=== PATIENT | male | born 1955 | race African-American/Black ===

== ENCOUNTER 2016-09-20 05:41 | Observation (INO) ==
[2016-09-20] MEDS ORDERED: ceFAZolin 1,000 MG VIAL IRRIG ONE (06:30)
--- NOTE | 2016-09-20 06:45 | EKG Report ---
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
[2016-09-20] MEDS ORDERED: ceFAZolin 1,000 MG VIAL ONE (06:56)
[2016-09-20 07:08] LABS: INR 3.6
[2016-09-20 07:13] LABS: PT Patient Result 41.9 SECS
[2016-09-20] MEDS ORDERED: PHYTONADIONE 10 MG/1 ML AMP SUBCUT ONE ×2 (07:18→10:40)
--- NOTE | 2016-09-20 07:32 | History and Physical Update ---
Sedation H&P Update - History and Physical H&P was reviewed, the patient examined and there: are no changes in the patients condition since last H&P was completed. - Dictation Physical: refer to scanned H&P - Physical Exam Mental Status: alert and oriented Heart: regular rate and rhythm Lung: clear to auscultation Abdomen: within normal limits Vitals: within normal limits History and Physical Changes: INR 3.6. Will correct INR with sq vit K, recheck H/o DVT/PE 10 yrs ago, no recurrence since was started on anticoagulation - Sedation Plan for Sedation: moderate Patient Consent: Procedure disscussed with patient and patinet has consented., Risks and benefits were discussed with patient,including infection,, bleeding, injury to surrounding structures, seizure, temporary nerve, Patient understands and accepts potential risks/benefits and agrees to ASA Class: III Airway Assessment: Class III: Soft palate, base of uvula visible
[2016-09-20] MEDS ORDERED: PHYTONADIONE 10 MG/1 ML AMP ONE ×2 (07:37→12:15)
[2016-09-20 10:29] LABS: INR 3.5
[2016-09-20 10:30] LABS: PT Patient Result 40.3 SECS
[2016-09-20] MEDS ORDERED: GLUCAGON 1 MG VIAL IM PRN (10:41)
[2016-09-20] MEDS ORDERED: DEXTROSE 50% 25 GM/50 ML VIAL IV PRN (10:41)
[2016-09-20 16:04] LABS: INR 3.1
[2016-09-20] MEDS: FUROSEMIDE 80 MG TABLET PO SCH ×2 (16:05→17:33)
[2016-09-20] MEDS: ASPIRIN EC 81 MG TABLET PO SCH ×2 (16:05→17:33)
[2016-09-20] MEDS: POTASSIUM CHLORIDE 20 MEQ TABLET PO SCH ×3 (16:05→21:08)
[2016-09-20 16:09] LABS: PT Patient Result 35.5 SECS
--- NOTE | 2016-09-20 16:37 | Cardiology History & Physical ---
Assessment and Plan (1) NICM (nonischemic cardiomyopathy) Status: Acute Assessment and plan: 61y AAm. NICM, CHF NYHA III, VT/VF, HTN, T2DM, DVT/PE on coumadin. Admitted for DDD ICD implant. -Supratherapeutic INR. Vit K was given today. Hold coumadin. Recheck in AM, if < 3, we will proceed with the ICD implant -cont insulin. Hold metformin -Keep on telemetry -NPO after MN Current Visit: Yes (2) CHF (congestive heart failure), NYHA class III Status: Acute Current Visit: Yes (3) T2DM (type 2 diabetes mellitus) Status: Acute Current Visit: Yes (4) HTN (hypertension) Status: Acute Current Visit: Yes (5) Anticoagulant effect Status: Acute Current Visit: Yes History of Present Illness Chief complaint: NICM, CHF History of present illness: Mr. Anderson is a 61 year old AA male, followed by dr. Aburto. H/o NICM, CHF NYHA III despite medical management, HTN, T2DM on insulin, DVT/PE, anticoagulated with coumadin. He had cardiac arrest due to VT/VF. He was referred for EP evaluation for ICD implant. We planned to proceed under therapeutic anticoagulation. The coumadin dose and the INR was monitored at [facility] before the procedure. The INR was 3.6 today. He got a total of 5 mg sq vitamin K so far, but the INR is still 3.1. Home Medications Medication Instructions Recorded Confirmed Type Allopurinol 300 mg PO DAILY 09/20/16 09/20/16 History Amiodarone HCl [Pacerone] 400 mg PO BID 09/20/16 09/20/16 History Aspirin EC Tab 81 mg PO DAILY 09/20/16 09/20/16 History Carvedilol [Coreg] 25 mg PO BID 09/20/16 09/20/16 History Digoxin 125 mcg PO DAILY 09/20/16 09/20/16 History Doxazosin Mesylate 8 mg PO DAILY 09/20/16 09/20/16 History Duloxetine HCl [Cymbalta] 60 capsule PO BEDTIME 09/20/16 09/20/16 History Furosemide Tab [Lasix Tab] 80 mg PO BID 09/20/16 09/20/16 History Gabapentin 300 capsule PO DAILY 09/20/16 09/20/16 History HYDROcodone/ACETAMIN 10-325 [[place] 1 tablet PO Q6HR PRN 09/20/16 09/20/16 History 10-325] Insulin Lispro [HumaLOG] 44 units SUBCUT AC SUPPER 09/20/16 09/20/16 History Insulin Lispro [HumaLOG] 46 units SUBCUT AC BREAKFAST 09/20/16 09/20/16 History Potassium Chloride 20 mcg PO TID 09/20/16 09/20/16 History Quinapril HCl 40 mg PO BID 09/20/16 09/20/16 History Warfarin [Coumadin] 5 mg PO DAILY 09/20/16 09/20/16 History amLODIPine [Norvasc] 10 mg PO DAILY 09/20/16 09/20/16 History cloNIDine HCl [Clonidine HCl] 0.3 mg PO BID 09/20/16 09/20/16 History metFORMIN [Glucophage] 500 mg PO BID 09/20/16 09/20/16 History Allergies Allergy/AdvReac Type Severity Reaction Status Date / Time No Known Allergies Allergy Unverified 09/20/16 06:01 12 point system: reviewed and no additional remarkable complaints except as stated Medical,Surgical,& Family Hx - Medical History Cardio: History of: Hypertension Neurology: No history of: Seizures Endocrine: History of: Diabetes Mellitus (IDDM), Dyslipidemia Musculoskeletal: History of: Back/Neck Problems - Surgical History Cardiac Surgeries: Sugical HX of: Cardiac Catheterization Abdominal Surgeries: Surgical HX of: EGD (20 years ago) Orthopedic Surgeries: Surgical HX of;: Spinal Surgery (disc mid and lower back) - Family History Family History: Reports;: Family Cancer (brother), Family Diabetes (mother), Family Heart Disease, Family Hypertension (mother) - Social History Smoking Status: Never smoker Frequency of Alcohol Use: None Type of Drug Use: None Cardiology Physical Exam - Constitutional Vitals: Vital Signs Temp Pulse Resp BP Pulse Ox 97.8 F 60 18 113/64 98 09/20/16 15:39 09/20/16 15:39 09/20/16 15:39 09/20/16 15:39 09/20/16 15:39 Intake and Output 09/20/16 09/20/16 09/20/16 07:59 15:59 23:59 Other: Weight 112.945 kg 110.677 kg Patient Weight 09/20/16 23:59 Weight 110.677 kg General appearance: over weight - Head Head exam: Present: normal inspection - Eye Eye exam: Absent: conjunctival injection Pupils: Absent: constricted - ENT ENT exam: Present: normal exam - Neck Neck exam: Present: normal inspection - Respiratory Respiratory exam: Present: clear to auscultation bilaterally - Cardiovascular Cardiovascular exam: Present: regular rate and rhythm - GI/Abdominal GI/Abdominal exam: Present: normal bowel sounds - Extremities Exam Extremities exam: Present: normal inspection, normal capillary refill. Absent: edema - Back Exam Back exam: Present: normal inspection - Neurological Exam Neurological exam: Present: alert, oriented X3 - Psychiatric Psychiatric exam: Present: normal affect, normal mood - Skin Skin exam: Present: normal color, warm. Absent: cyanosis Result/EKG - Labs Lab Results: I have reviewed the past 24 hour labs Labs: Laboratory Results - last 24 hr 09/20/16 09/20/16 09/20/16 06:55 07:00 08:45 INR 3.6 PT Patient/Control Mix 41.9 POC Glucose 70 L 88 09/20/16 09/20/16 09:49 15:11 INR 3.5 3.1 PT Patient/Control Mix 40.3 35.5 POC Glucose - EKG EKG results: interpreted by me
[2016-09-20] MEDS: amLODIPine 10 MG TABLET PO SCH (17:33)
[2016-09-20] MEDS: CARVEDILOL 25 MG TABLET PO SCH (17:33)
[2016-09-20] MEDS: INSULIN LISPRO 100 UNIT/ML SUBCUT SCH (17:35)
[2016-09-20] MEDS: QUINAPRIL 20 MG TABLET PO SCH (21:08)
[2016-09-20] MEDS: DULoxetine 30 MG CAPSULE PO SCH (21:08)
[2016-09-21 05:42] LABS: Basophils # 0.1 10*3/uL (0.0-0.2); Basophils % 0.7 % (0.0-0.8); Eosinophils # 0.5 10*3/uL (0.0-0.87); Eosinophils % 5.9 % (0.00-10.9); Hematocrit 37.6 VOL% (42.0-52.0); Hemoglobin 12.2 GM/DL (14.0-18.0); Immature Granulocytes % 0.3 %; Immature Granulocytes Absolute 0.02 #; Lymphocytes # 2.6 10*3/uL (1.4-4.0); Lymphocytes % 34.2 % (21.2-54.2); Mean Corpuscular HGB Conc 32.4 GM/DL (32-36); Mean Corpuscular Hemoglobin 29 PG (27-34); Mean Corpuscular Volume 88.9 FL (87-102); Monocytes # 0.5 10*3/uL (0.11-0.8); Monocytes % 6.9 % (1.7-12.7); Platelet Count 215 T/CUMM (130-400); Red Blood Count 4.23 MC/CUMM (3.8-5.5); Red Cell Distribution Width 15.6 % (9.3-17.3); White Blood Count 7.7 T/CUMM (4-12)
[2016-09-21 05:54] LABS: INR 2.1
[2016-09-21 06:09] LABS: PT Patient Result 23.5 SECS
[2016-09-21 06:13] LABS: Calcium 8.7 MG/DL (8.5-10.1); Osmolality,Calculated 297.6 MOS/KG (273-304); Potassium 3.6 MMOL/L (3.5-5.1)
[2016-09-21] MEDS ORDERED: ONDANSETRON 4 MG/2 ML VIAL ONE (07:15)
[2016-09-21] MEDS ORDERED: PROPOFOL 500 MG/50 ML BOTTLE IV ONE (07:15)
[2016-09-21] MEDS ORDERED: LIDOCAINE 100 MG/5 ML SYRINGE ONE (07:15)
[2016-09-21] MEDS ORDERED: ceFAZolin 1,000 MG VIAL ONE (07:24)
[2016-09-21] MEDS ORDERED: HEPARIN/NACL 0.9% 2 UNITS/ML 500 ML IV ONE (07:25)
[2016-09-21] MEDS ORDERED: LIDOCAINE 1% 20 ML VIAL ONE (07:25)
--- NOTE | 2016-09-21 07:26 | History and Physical Update ---
Sedation H&P Update - History and Physical H&P was reviewed, the patient examined and there: are no changes in the patients condition since last H&P was completed. - Dictation Physical: refer to H&P completed by admitting physician - Physical Exam Mental Status: alert and oriented Heart: regular rate and rhythm Lung: clear to auscultation Abdomen: within normal limits Vitals: within normal limits - Sedation Plan for Sedation: MAC Patient Consent: Procedure disscussed with patient and patinet has consented., Risks and benefits were discussed with patient,including infection,, bleeding, injury to surrounding structures, seizure, temporary nerve, Patient understands and accepts potential risks/benefits and agrees to ASA Class: III Airway Assessment: Class II: Soft palate, uvula, fauces visible
[2016-09-21] MEDS ORDERED: TISSUE ADHESIVE 1 EACH APPLICATOR TOP ONE (08:05)
--- NOTE | 2016-09-21 09:27 | Cardiac Defibrillator ---
- Preoperative diagnosis Date of Procedure:: 09/21/16 Preop Diagnosis: cardiac arrest due to ventricular fibrillation, not due to transient reversible cause Post-op diagnosis: same Procedure: PROCEDURAL SUMMARY DDD ICD implant from left axillary access. Defibrillator testing. Successful procedure, no complications. PLAN Bed rest for 4 hours. CXR, ECG stat. Ancef 1g iv. q8h 2x Routine post ICD implant nursing care. DIAGNOSES NICM VF arrest T2DM Sedation A timeout was performed. Conscious sedation was initiated and maintained with iv. Versed and Fentanyl. Sedation was provided by the anesthesia team for the defibrillator testing. The patient was continuously monitored by electrocardiography, pulse oximetry and NIBP. Antibiotic prophylaxis Iv. Ancef was used prior to the procedure. PROCEDURE The left pectoral area was meticulously prepared with ChloroPrep surgical scrub. Sterile draping was applied and Ioban was used to cover the operation site. The image intensifier was draped with a sterile bag and positioned over the patient's chest. After infiltration with 1% lidocaine, an incision was made in the left infraclavicular area, parallel to the deltopectoral groove. The incision was carried down to the level of the pectoral fascia, with careful cauterization of all bleeders. A subcutaneous pocket was then created superficial to the pectoral fascia with sharp and blunt dissection and hemostasis was achieved. A micropuncture kit was used to access the left axillary vein under fluoroscopic guidance. A peel-away introducer was inserted over the guidewire. The dilator of the introducer was removed, the guidewire was secured to the drape, and the right ventricular lead was passed through the introducer and advanced to the right ventricular outflow tract under fluoroscopic guidance. The introducer sheath was then removed. The ventricular lead was positioned in the right ventricular cavity using a curved stiffening stylet. The curved stylet was replaced with a straight stylet which was advanced to the electrode tip and used to deploy the active fixation mechanism. The lead was tested repeatedly for stability. A second axillary access was obtained for the atrial lead due to narrow costoclavicular space. A second peel-away introducer was inserted over the guidewire. The dilator of the introducer was removed, the guidewire was secured to the drape, and the atrial lead was passed through the introducer and advanced to the right atrium. Under fluoroscopic guidance, the atrial electrode was then positioned in the right atrial cavity using a curved stylet and tested repeatedly for stability. Multiple atrial positions were measured due to high pacing thresholds. The leads were tested for stability and phrenic nerve stimulation was excluded with pacing at 10 Volts. The leads were anchored in the subcutaneous tissue with nonabsorbable suture on the anchoring sleeve near the point of entry to the vein. The ICD generator was then attached to the leads and sealed in the prescribed manner. The wound was flushed with Ancef and the device was placed into the pocket. The guidewire was removed. VF was induced with T wave shock. The ICD detected the arrhythmia and performed successful defibrilation with 25J energy. The wound was then closed using a double layer of 2-0 absorbable Vicryl sutures followed by a subcuticular running suture with 4-0 Monocryl and a layer of SteriStrips. A sterile dressing was applied. The device was programmed as detailed below. Implants Device: Medtronic Evera DDD ICD, SN: [id number], location: left infraclavicular Right ventricular lead: Medtronic [id number], SN: [id number], location: RV apex Right atrial lead: Medtronic [id number], SN: [id number], location: RA appendage The implanted system is MRI conditional. Measurements RA bipolar: threshold 0.75V @ 0.4 ms, P 2.1 mV, impedance 399 Ohm RV bipolar: threshold 0.75V @ 0.4 ms, R 10.0 mV, impedance 475 Ohm Shock impedance 54 Ohms. Settings MVPR 60/130 Mode switch on VF @ 300 ms VT @ 360 ms Anesthesia: MAC Surgeon / Physician: Misael Trejo Titrator: other (Raúl) Estimated blood loss: minimal Specimens: none sent Condition: stable Disposition: floor - Medications / Follow-up
[2016-09-21] MEDS ORDERED: MIDAZOLAM 2 MG/2 ML VIAL ONE (09:31)
[2016-09-21] MEDS ORDERED: fentaNYL 100 MCG/2 ML VIAL ONE (09:31)
[2016-09-21] MEDS ORDERED: SODIUM CHLORIDE 0.9% 100 ML IV ONE (09:31)
[2016-09-21] MEDS ORDERED: LACTATED RINGERS 1,000 ML IV ONE (09:31)
--- NOTE | 2016-09-21 09:36 | Anesthesia ---
Anesthesia Post OP - Post Ansesthetic Evaluation Patient seen in post op: Yes Resp: within normal limits CV: within normal limits Mental: within normal limits Temp: within normal limits Leps-[id number]-Iwvjecjhw: within normal limits Nausea and Vomiting: within normal limits Pain: within normal limits
--- NOTE | 2016-09-21 09:41 | XRay Report ---
History: Pacemaker lead placement. Postop pacemaker Date: 09/21/2016 at 9:12 AM Study: Chest x-ray AP portable Comparison exam: September 12, 2016 A left subclavian dual-lead transvenous pacemaker/defibrillator device is in generally satisfactory position. There is no pneumothorax. There is mild cardiomegaly. There is no mediastinal mass. The pulmonary vasculature is borderline prominent. The lungs and pleural spaces are generally clear. Shallow breath. There is [id number] thoracic spondylosis. Impression: No evidence of a pneumothorax following pacemaker placement. The pacemaker leads are in generally satisfactory position. Mild cardiomegaly and borderline pulmonary venous hypertension. PROCEDURE INTERPRETED AT [facility] DEPARTMENT OF RADIOLOGY Final Report Signed by: Dr. Ashanti Lin
--- NOTE | 2016-09-21 09:47 | EKG Report ---
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
[2016-09-21] MEDS: GABAPENTIN 300 MG CAPSULE PO SCH (10:36)
[2016-09-21] MEDS: INSULIN LISPRO 100 UNIT/ML SUBCUT SCH ×2 (10:36→17:26)
[2016-09-21] MEDS: amLODIPine 10 MG TABLET PO SCH (10:37)
[2016-09-21] MEDS: FUROSEMIDE 80 MG TABLET PO SCH ×2 (10:37→17:26)
[2016-09-21] MEDS: CARVEDILOL 25 MG TABLET PO SCH ×2 (10:37→17:26)
[2016-09-21] MEDS: DOXAZOSIN 4 MG TABLET PO SCH (10:37)
[2016-09-21] MEDS: ASPIRIN EC 81 MG TABLET PO SCH (10:37)
[2016-09-21] MEDS: ALLOPURINOL 300 MG TABLET PO SCH (10:37)
[2016-09-21] MEDS: POTASSIUM CHLORIDE 20 MEQ TABLET PO SCH ×3 (10:37→21:37)
[2016-09-21] MEDS: QUINAPRIL 20 MG TABLET PO SCH ×2 (10:37→21:36)
[2016-09-21] MEDS ORDERED: DIGOXIN 0.125 MG TABLET PO SCH (13:00)
[2016-09-21] MEDS ORDERED: WARFARIN 2 MG TABLET PO SCH (18:00)
[2016-09-21] MEDS ORDERED: WARFARIN 4 MG TABLET ONE (18:50)
[2016-09-21] MEDS: DULoxetine 30 MG CAPSULE PO SCH (21:36)
[2016-09-22 05:10] LABS: Basophils % 0.3 % (0.0-0.8); Eosinophils # 0.6 10*3/uL (0.0-0.87); Eosinophils % 6.3 % (0.00-10.9); Hematocrit 37.8 VOL% (42.0-52.0); Immature Granulocytes % 0.3 %; Immature Granulocytes Absolute 0.03 #; Lymphocytes # 3.1 10*3/uL (1.4-4.0); Lymphocytes % 35.6 % (21.2-54.2); Mean Corpuscular HGB Conc 31.7 GM/DL (32-36); Mean Corpuscular Hemoglobin 29 PG (27-34); Mean Corpuscular Volume 90.2 FL (87-102); Mean Platelet Volume 13.5 FL (9.6-12.0); Monocytes # 0.6 10*3/uL (0.11-0.8); Neutrophils # 4.4 10*3/uL (1.4-7.4); Neutrophils % 50.5 % (38.7-73.9); Platelet Count 196 T/CUMM (130-400); Red Blood Count 4.19 MC/CUMM (3.8-5.5); Red Cell Distribution Width 15.8 % (9.3-17.3); White Blood Count 8.8 T/CUMM (4-12)
[2016-09-22 05:19] LABS: INR 1.5; PT Patient Result 16.3 SECS
[2016-09-22 05:43] LABS: Calcium 8.6 MG/DL (8.5-10.1); Osmolality,Calculated 293.7 MOS/KG (273-304); Potassium 4.4 MMOL/L (3.5-5.1)
[2016-09-22 07:50] VITALS: BP 138/69
--- NOTE | 2016-09-22 08:24 | Discharge Summary ---
Hospital Course - Hospital Course Hospital Course: 61yF, followed by dr. Aburto. NICM, CHF, bradycardia, s/p VF arrest. He was admitted for DDD ICD implantatation for secondary prevention. Successful defibrillator testing was performed. The procedure was performed in MAC, there were not complications. CX and device interrogation showed normal lead parameters and position. Labs remained at baseline. There was no hematoma. -The amiodarone was discontinued. Continue Coreg, quinapril. -Continue digoxin. Level was 1.1 with renally adjusted dose. -FU with dr. Trejo in 1 week. -Post ICD implant activity limitations and implant site catre were discussed. -Continue coumadin. Diagnosis - Discharge Diagnosis (1) NICM (nonischemic cardiomyopathy) Status: Acute (2) CHF (congestive heart failure), NYHA class III Status: Acute (3) T2DM (type 2 diabetes mellitus) Status: Acute (4) HTN (hypertension) Status: Acute (5) Anticoagulant effect Status: Acute Discharge Plan - Discharge Data Disposition: Disch To Home/Self Care Condition at Discharge: Stable Discharge Diet: advance to your usual diet Activity: resume usual activities as tolerated Hygiene: other (keep implant site dry and wear the sling all time for 1 week) Weight Bearing at Discharge: full weight bearing Driving: not until seen by doctor Contact your physician if you experience:: fever over 101, Difficulty voiding, Redness or swelling, Nausea/Vomiting, Shortness of breath, Bleeding, pain uncontrolled by pain medications - Discharge Medications Continue cloNIDine HCl [Clonidine HCl] 0.3 mg PO BID Quinapril HCl 40 mg PO BID Gabapentin 300 capsule PO DAILY Insulin Lispro [HumaLOG] 46 units SUBCUT AC BREAKFAST Aspirin EC Tab 81 mg PO DAILY Allopurinol 300 mg PO DAILY Carvedilol [Coreg] 25 mg PO BID Duloxetine HCl [Cymbalta] 60 capsule PO BEDTIME Potassium Chloride 20 mcg PO TID amLODIPine [Norvasc] 10 mg PO DAILY HYDROcodone/ACETAMIN 10-325 [[place] 10-325] 1 tablet PO Q6HR PRN PRN Reason: back pain metFORMIN [Glucophage] 500 mg PO BID Furosemide Tab [Lasix Tab] 80 mg PO BID Doxazosin Mesylate 8 mg PO DAILY Digoxin 125 mcg PO DAILY Insulin Lispro [HumaLOG] 44 units SUBCUT AC SUPPER Warfarin [Coumadin] 5 mg PO DAILY Discontinued Amiodarone HCl [Pacerone] 400 mg PO BID - Follow Up or Referral Follow Up: Misael Trejo MD [Physician] - 1 Week - Forms/Instructions Exam - Constitutional Vitals: Period Temp Pulse Resp BP Sys/Chen Pulse Ox Last 24 Hr 98 F-98.8 F 60-67 16-20 113-143/55-71 92-96 General appearance: over weight - Head Head exam: Present: normal inspection - Eye Eye exam: Absent: conjunctival injection Pupils: Absent: dilated - ENT ENT exam: Present: normal external ear exam - Neck Neck exam: Present: normal inspection - Respiratory Respiratory exam: Present: clear to auscultation bilaterally - Cardiovascular Cardiovascular exam: Present: regular rate and rhythm, systolic murmur - GI/Abdominal GI/Abdominal exam: Present: normal bowel sounds - Extremities Exam Extremities exam: Present: normal inspection, normal capillary refill. Absent: edema - Back Exam Back exam: Present: normal inspection - Neurological Exam Neurological exam: Present: alert, oriented X3 - Psychiatric Psychiatric exam: Present: normal affect, normal mood - Skin Skin exam: Present: normal color, warm. Absent: cyanosis Discharge Results Procedures and tests throughout hospitalization: Pending Orders 09/21/16 07:28 CL pacemaker Routine 09/22/16 04:00 XR chest 2V IN AM Labs on day of discharge: Labs from last 24 hours 09/22/16 09/22/16 09/22/16 07:14 04:16 04:16 WBC RBC Hgb Hct MCV MCH MCHC RDW Plt Count MPV Neut % (Auto) Lymph % (Auto) [place] % (Auto) Eos % (Auto) Baso % (Auto) Neut # (Auto) Lymph # (Auto) [place] # (Auto) Eos # (Auto) Baso # (Auto) Immature Gran % Nucleated RBC % Immature Gran # Nucleated RBCs # INR 1.5 PT Patient/Control Mix 16.3 D Sodium 145 Potassium 4.4 Chloride 107 Carbon Dioxide 28 Anion Gap 14.4 BUN 18 Creatinine 1.40 H GFR Calculation 82 BUN/Creatinine Ratio 12.00 Glucose 164 H POC Glucose 193 H Calculated Osmolality 293.7 Calcium 8.6 Magnesium 2.0 Digoxin 09/22/16 09/21/16 09/21/16 04:16 20:06 16:27 WBC 8.8 RBC 4.19 Hgb 12.0 L Hct 37.8 L MCV 90.2 MCH 29 MCHC 31.7 L RDW 15.8 Plt Count 196 MPV 13.5 H Neut % (Auto) 50.5 Lymph % (Auto) 35.6 [place] % (Auto) 7.0 Eos % (Auto) 6.3 Baso % (Auto) 0.3 Neut # (Auto) 4.4 Lymph # (Auto) 3.1 Trinity # (Auto) 0.6 Eos # (Auto) 0.6 Baso # (Auto) 0.0 Immature Gran % 0.3 Nucleated RBC % 0.0 Immature Gran # 0.03 Nucleated RBCs # 0.00 INR PT Patient/Control Mix Sodium Potassium Chloride Carbon Dioxide Anion Gap BUN Creatinine GFR Calculation BUN/Creatinine Ratio Glucose POC Glucose 253 H 159 H Calculated Osmolality Calcium Magnesium Digoxin 09/21/16 09/21/16 09/21/16 11:36 10:33 05:09 WBC RBC Hgb Hct MCV MCH MCHC RDW Plt Count MPV Neut % (Auto) Lymph % (Auto) [place] % (Auto) Eos % (Auto) Baso % (Auto) Neut # (Auto) Lymph # (Auto) Trinity # (Auto) Eos # (Auto) Baso # (Auto) Immature Gran % Nucleated RBC % Immature Gran # Nucleated RBCs # INR PT Patient/Control Mix Sodium Potassium Chloride Carbon Dioxide Anion Gap BUN Creatinine GFR Calculation BUN/Creatinine Ratio Glucose POC Glucose 191 H 226 H Calculated Osmolality Calcium Magnesium Digoxin 1.10 - Imaging and Cardiology Cardiology Procedure: image reviewed by me, report reviewed by me DS: Provider Date of admission: 09/20/16 10:39 Attending physician on admission: Misael Trejo MD Consults: 09/21/16 09:09 Consult to Pharmacy [CONS] Routine Reason for Pharmacy Consult: Adjust Meds Renal Funct Discharging clinician: Misael Trejo MD Expected date of discharge: 09/22/16
[2016-09-22] MEDS: POTASSIUM CHLORIDE 20 MEQ TABLET PO SCH (08:55)
[2016-09-22] MEDS: GABAPENTIN 300 MG CAPSULE PO SCH (08:55)
[2016-09-22] MEDS: QUINAPRIL 20 MG TABLET PO SCH (08:55)
[2016-09-22] MEDS: DOXAZOSIN 4 MG TABLET PO SCH (08:56)
[2016-09-22] MEDS: amLODIPine 10 MG TABLET PO SCH (08:56)
[2016-09-22] MEDS: FUROSEMIDE 80 MG TABLET PO SCH (08:56)
[2016-09-22] MEDS: INSULIN LISPRO 100 UNIT/ML SUBCUT SCH (08:56)
[2016-09-22] MEDS: CARVEDILOL 25 MG TABLET PO SCH (08:56)
[2016-09-22] MEDS: ASPIRIN EC 81 MG TABLET PO SCH (08:56)
[2016-09-22] MEDS: ALLOPURINOL 300 MG TABLET PO SCH (08:56)
--- NOTE | 2016-09-22 09:15 | XRay Report ---
XR chest 2V Date: 09/22/2016 4:00 AM History: Lead placement Comparison: 09/21/2016 Technique: PA and lateral chest Findings: The heart is slightly smaller in size with left subclavian atrioventricular permanent pacemaker. No pneumothorax. Reduced interstitial edema with smaller pleural effusions. IVC filter with degenerative changes. Impression: Improving mild CHF with stable left subclavian atrioventricular AICD. No pneumothorax. PROCEDURE INTERPRETED AT [facility] DEPARTMENT OF RADIOLOGY Final Report Signed by: Dr. Mariel Mays
== END 2016-09-22 10:33 | disposition home or self-care (01) ==
LOC: N.CL 05:41 → N.TELEN 05:41 → N.CL 05:59 → N.TELEN 15:25
PROVIDERS: ADMIT Internal Medicine Clinical Cardiac Electrophysiology; ATTEND Internal Medicine Clinical Cardiac Electrophysiology
PROC: CLDCICD (2016-09-21 07:45)

== ENCOUNTER 2019-04-29 23:49 | Inpatient (IN) ==
[2019-04-30] MEDS ORDERED: FUROSEMIDE 40 MG/4 ML VIAL IV STA (00:18)
[2019-04-30 00:55] LABS: Alanine Aminotransferase 45 U/L (16-61); Albumin 3.3 G/DL (3.4-5.0); Alkaline Phosphatase 210 U/L (45-117); Aspartate Amino Transferase 20 U/L (0-37); Blood Urea Nitrogen 52 MG/DL (7-18); Calcium 8.8 MG/DL (8.5-10.1); Estimated Glom Filtration Rate 33 ML/MIN; Glucose 146 MG/DL (74-106); Osmolality,Calculated 295.4 MOS/KG (273-304); Total Protein 7.6 G/DL (6.4-8.3)
[2019-04-30 00:56] LABS: Basophils # 0.1 10*3/uL (0.0-0.2); Basophils % 0.8 % (0.0-0.8); Eosinophils # 0.2 10*3/uL (0.0-0.87); Eosinophils % 3.2 % (0.00-10.9); Hematocrit 33.2 VOL% (42.0-52.0); Hemoglobin 10.1 GM/DL (14.0-18.0); Immature Granulocytes % 0.6 %; Immature Granulocytes Absolute 0.04 #; Lymphocytes # 1.2 10*3/uL (1.4-4.0); Lymphocytes % 16.7 % (21.2-54.2); Mean Corpuscular HGB Conc 30.4 GM/DL (32-36); Mean Corpuscular Volume 88.3 FL (87-102); Mean Platelet Volume 12.1 FL (9.6-12.0); Monocytes % 8.1 % (1.7-12.7); Neutrophils % 70.6 % (38.7-73.9); Platelet Count 265 T/CUMM (130-400); Red Blood Count 3.76 MC/CUMM (3.8-5.5); Red Cell Distribution Width 16.2 % (9.3-17.3); Troponin I 0.231 NG/ML (0.00-0.045); White Blood Count 7.2 T/CUMM (4-12)
[2019-04-30 00:58] LABS: INR 2.7
[2019-04-30 01:00] LABS: Partial Thromboplastin Time 41.6 SECS (20.8-36.0)
[2019-04-30] MEDS ORDERED: GLUCAGON 1 MG VIAL IM PRN (04:51)
[2019-04-30] MEDS ORDERED: DEXTROSE 50% 25 GM/50 ML VIAL IV PRN (04:51)
[2019-04-30] MEDS ORDERED: ACETAMINOPHEN 325 MG TABLET PO PRN (04:51)
[2019-04-30] MEDS ORDERED: ONDANSETRON 4 MG/2 ML VIAL IV PRN (04:51)
[2019-04-30] MEDS ORDERED: DOCUSATE SODIUM 100 MG CAPSULE PO PRN (04:51)
[2019-04-30 06:23] LABS: Thyroid Stimulating Hormone 8.72 uIU/ml (0.358-3.74)
[2019-04-30] MEDS: INSULIN LISPRO 100 UNIT/ML SUBCUT SCH ×4 (07:27→20:44)
[2019-04-30] MEDS ORDERED: INSULIN LISPRO PROTAMINE/LISPRO 75/25 100 UNIT/ML SUBCUT SCH ×2 (08:00→17:00)
[2019-04-30 08:25] LABS: Free T4 (Free Thyroxine) 1.41 NG/DL (0.76-1.46)
[2019-04-30] MEDS ORDERED: ISOSORBIDE MONONITRATE 30 MG TABLET PO SCH (09:00)
[2019-04-30] MEDS: amLODIPine 10 MG TABLET PO SCH (09:01)
[2019-04-30] MEDS: DOXAZOSIN 4 MG TABLET PO SCH (09:01)
[2019-04-30] MEDS: POTASSIUM CHLORIDE 20 MEQ TABLET PO SCH ×3 (09:01→20:44)
[2019-04-30] MEDS: ALLOPURINOL 300 MG TABLET PO SCH (09:01)
[2019-04-30] MEDS: ASPIRIN EC 81 MG TABLET PO SCH (09:01)
[2019-04-30] MEDS: AMIODARONE 200 MG TABLET PO SCH (09:01)
[2019-04-30] MEDS: LEVOTHYROXINE 50 MCG TABLET PO SCH (09:02)
[2019-04-30] MEDS: hydrALAZINE 10 MG TABLET PO SCH ×3 (09:02→20:44)
[2019-04-30] MEDS: carvediloL 25 MG TABLET PO SCH ×2 (09:02→17:17)
[2019-04-30] MEDS: DIGOXIN 0.125 MG TABLET PO SCH (09:02)
[2019-04-30] MEDS: traMADol 50 MG TABLET PO PRN (09:03)
[2019-04-30] MEDS: FUROSEMIDE 100 MG/10 ML VIAL IV SCH ×2 (09:03→15:22)
[2019-04-30] MEDS: BRINZOLAMIDE 1% OPH SUSP 10 ML BOTTLE BOTH EYES SCH ×3 (09:04→20:44)
[2019-04-30] MEDS: WARFARIN 5 MG TABLET PO SCH (17:17)
[2019-04-30] MEDS: GABAPENTIN 300 MG CAPSULE PO SCH (20:44)
[2019-04-30] MEDS: DULoxetine 30 MG CAPSULE PO SCH (20:44)
[2019-05-01 05:07] LABS: Basophils % 0.6 % (0.0-0.8); Eosinophils # 0.3 10*3/uL (0.0-0.87); Eosinophils % 4.1 % (0.00-10.9); Hematocrit 31.7 VOL% (42.0-52.0); Hemoglobin 9.9 GM/DL (14.0-18.0); Immature Granulocytes % 0.3 %; Immature Granulocytes Absolute 0.02 #; Lymphocytes # 1.3 10*3/uL (1.4-4.0); Lymphocytes % 19.1 % (21.2-54.2); Mean Corpuscular HGB Conc 31.2 GM/DL (32-36); Mean Corpuscular Volume 85.9 FL (87-102); Mean Platelet Volume 12.1 FL (9.6-12.0); Monocytes % 8.3 % (1.7-12.7); Neutrophils % 67.6 % (38.7-73.9); Platelet Count 258 T/CUMM (130-400); Red Blood Count 3.69 MC/CUMM (3.8-5.5); Red Cell Distribution Width 16.2 % (9.3-17.3)
[2019-05-01] MEDS: LEVOTHYROXINE 50 MCG TABLET PO SCH (06:07)
[2019-05-01 06:25] LABS: Calcium 9.1 MG/DL (8.5-10.1); Osmolality,Calculated 297.3 MOS/KG (273-304)
[2019-05-01] MEDS: INSULIN LISPRO 100 UNIT/ML SUBCUT SCH ×4 (07:29→21:18)
[2019-05-01] MEDS: DOXAZOSIN 4 MG TABLET PO SCH (09:11)
[2019-05-01] MEDS: amLODIPine 10 MG TABLET PO SCH (09:12)
[2019-05-01] MEDS: GABAPENTIN 300 MG CAPSULE PO SCH ×2 (09:12→21:18)
[2019-05-01] MEDS: ALLOPURINOL 300 MG TABLET PO SCH (09:12)
[2019-05-01] MEDS: ISOSORBIDE MONONITRATE 30 MG TABLET PO SCH (09:12)
[2019-05-01] MEDS: DIGOXIN 0.125 MG TABLET PO SCH (09:12)
[2019-05-01] MEDS: carvediloL 25 MG TABLET PO SCH ×2 (09:12→17:37)
[2019-05-01] MEDS: ASPIRIN EC 81 MG TABLET PO SCH (09:12)
[2019-05-01] MEDS: POTASSIUM CHLORIDE 20 MEQ TABLET PO SCH ×3 (09:13→21:18)
[2019-05-01] MEDS: AMIODARONE 200 MG TABLET PO SCH (09:13)
[2019-05-01] MEDS: FUROSEMIDE 100 MG/10 ML VIAL IV SCH ×2 (09:13→16:08)
[2019-05-01] MEDS: BRINZOLAMIDE 1% OPH SUSP 10 ML BOTTLE BOTH EYES SCH ×3 (09:15→21:18)
[2019-05-01] MEDS: WARFARIN 5 MG TABLET PO SCH (17:36)
[2019-05-01 19:34] LABS: INR 2.3
[2019-05-01 19:35] LABS: PT Patient Result 24.8 SECS (9.6-12.2)
[2019-05-01] MEDS: DULoxetine 30 MG CAPSULE PO SCH (21:18)
[2019-05-01] MEDS: traMADol 50 MG TABLET PO PRN (22:07)
[2019-05-02] MEDS: LEVOTHYROXINE 50 MCG TABLET PO SCH (05:51)
[2019-05-02 05:53] LABS: Basophils # 0.1 10*3/uL (0.0-0.2); Basophils % 0.6 % (0.0-0.8); Eosinophils # 0.3 10*3/uL (0.0-0.87); Eosinophils % 3.5 % (0.00-10.9); Hematocrit 31.7 VOL% (42.0-52.0); Hemoglobin 9.7 GM/DL (14.0-18.0); Immature Granulocytes % 0.2 %; Immature Granulocytes Absolute 0.02 #; Lymphocytes # 1.5 10*3/uL (1.4-4.0); Lymphocytes % 18.5 % (21.2-54.2); Mean Corpuscular HGB Conc 30.6 GM/DL (32-36); Mean Corpuscular Volume 86.1 FL (87-102); Mean Platelet Volume 11.9 FL (9.6-12.0); Monocytes % 8.4 % (1.7-12.7); Neutrophils % 68.8 % (38.7-73.9); Platelet Count 257 T/CUMM (130-400); Red Blood Count 3.68 MC/CUMM (3.8-5.5); Red Cell Distribution Width 16.3 % (9.3-17.3)
[2019-05-02 06:06] LABS: Calcium 8.7 MG/DL (8.5-10.1); Osmolality,Calculated 297.4 MOS/KG (273-304)
[2019-05-02 06:08] LABS: INR 2.4
[2019-05-02 06:27] LABS: PT Patient Result 25.4 SECS (9.6-12.2)
[2019-05-02] MEDS: INSULIN LISPRO 100 UNIT/ML SUBCUT SCH ×2 (08:51→12:22)
[2019-05-02] MEDS: ASPIRIN EC 81 MG TABLET PO SCH (08:51)
[2019-05-02] MEDS: GABAPENTIN 300 MG CAPSULE PO SCH (08:52)
[2019-05-02] MEDS: ISOSORBIDE MONONITRATE 30 MG TABLET PO SCH (08:52)
[2019-05-02] MEDS: AMIODARONE 200 MG TABLET PO SCH (08:52)
[2019-05-02] MEDS: carvediloL 25 MG TABLET PO SCH (08:52)
[2019-05-02] MEDS: ALLOPURINOL 300 MG TABLET PO SCH (08:52)
[2019-05-02] MEDS: POTASSIUM CHLORIDE 20 MEQ TABLET PO SCH (08:52)
[2019-05-02] MEDS: DIGOXIN 0.125 MG TABLET PO SCH (08:52)
[2019-05-02] MEDS: DOXAZOSIN 4 MG TABLET PO SCH (08:52)
[2019-05-02] MEDS: amLODIPine 10 MG TABLET PO SCH (08:53)
[2019-05-02] MEDS: FUROSEMIDE 100 MG/10 ML VIAL IV SCH (08:53)
[2019-05-02] MEDS: BRINZOLAMIDE 1% OPH SUSP 10 ML BOTTLE BOTH EYES SCH (08:54)
[2019-05-02 12:02] VITALS: BP 120/58
[2019-05-02] MEDS ORDERED: INFLUENZA VIRUS VACCINE 0.5 ML SYRINGE IM ONE (12:30)
[2019-05-02] MEDS ORDERED: FUROSEMIDE 80 MG TABLET PO SCH (16:00)
== END 2019-05-02 13:29 | disposition home health service (06) | DRG 291 ==
LOC: N.ED 23:49 → SUATTDRO 04-30 04:10 → N.EDINP 04-30 04:10 → N.2E 04-30 04:18
PROVIDERS: ADMIT Family Medicine; ATTEND Internal Medicine

== ENCOUNTER 2019-07-12 07:00 | Observation (INO) ==
[2019-07-12 09:20] LABS: Basophils # 0.1 10*3/uL (0.0-0.2); Basophils % 0.6 % (0.0-0.8); Eosinophils # 0.1 10*3/uL (0.0-0.87); Hematocrit 33.9 VOL% (42.0-52.0); Hemoglobin 10.4 GM/DL (14.0-18.0); Immature Granulocytes % 0.5 %; Immature Granulocytes Absolute 0.05 #; Lymphocytes # 1.4 10*3/uL (1.4-4.0); Lymphocytes % 13.2 % (21.2-54.2); Mean Corpuscular HGB Conc 30.7 GM/DL (32-36); Mean Platelet Volume 11.5 FL (9.6-12.0); Monocytes % 9.7 % (1.7-12.7); Platelet Count 242 T/CUMM (130-400); Red Blood Count 4.24 MC/CUMM (3.8-5.5); White Blood Count 10.6 T/CUMM (4-12)
[2019-07-12 09:35] LABS: Calcium 8.7 MG/DL (8.5-10.1)
[2019-07-12] MEDS ORDERED: ASPIRIN 325 MG TABLET PO STA (10:26)
[2019-07-12] MEDS ORDERED: POTASSIUM CHLORIDE 20 MEQ TABLET PO STA (10:32)
[2019-07-12] MEDS ORDERED: MAGNESIUM SULF RIDER 2 GM in PREMIX 1 EACH IV PRN (11:18)
[2019-07-12] MEDS ORDERED: BISACODYL 5 MG TABLET PO PRN (11:18)
[2019-07-12] MEDS ORDERED: ACETAMINOPHEN 325 MG TABLET PO PRN (11:18)
[2019-07-12] MEDS ORDERED: guaiFENesin/DM ER 600-30 MG TABLET PO PRN (11:18)
[2019-07-12] MEDS ORDERED: ONDANSETRON 4 MG/2 ML VIAL IV PRN (11:18)
[2019-07-12] MEDS ORDERED: MAGNESIUM SULF RIDER 4 GM in PREMIX 1 EACH IV PRN (11:18)
[2019-07-12] MEDS ORDERED: CETIRIZINE 10 MG TABLET PO PRN (11:18)
[2019-07-12] MEDS ORDERED: GLUCAGON 1 MG VIAL IM PRN (11:25)
[2019-07-12] MEDS ORDERED: DEXTROSE 50% 25 GM/50 ML VIAL IV PRN (11:25)
[2019-07-12] MEDS ORDERED: AZITHROMYCIN 250 MG TABLET PO SCH (11:30)
[2019-07-12] MEDS ORDERED: traMADol 50 MG TABLET PO PRN (11:35)
[2019-07-12] MEDS ORDERED: cefTRIAXone 1,000 MG in SYRINGE 1 EACH IV SCH (12:00)
[2019-07-12] MEDS: INSULIN LISPRO 100 UNIT/ML SUBCUT SCH ×3 (12:44→21:29)
[2019-07-12 13:27] LABS: INR 2.1; PT Patient Result 22.4 SECS (9.6-12.2)
[2019-07-12] MEDS: hydrALAZINE 10 MG TABLET PO SCH ×2 (15:28→21:29)
[2019-07-12] MEDS: FLUTICASONE 50 MCG NASAL SPRAY 16 GM BOTTLE BOTH NARES SCH (15:29)
[2019-07-12] MEDS: POTASSIUM CHLORIDE 20 MEQ TABLET PO PRN ×2 (15:29→18:04)
[2019-07-12] MEDS: BRINZOLAMIDE 1% OPH SUSP 10 ML BOTTLE BOTH EYES SCH ×2 (15:30→23:57)
[2019-07-12] MEDS: FUROSEMIDE 80 MG TABLET PO SCH (15:32)
[2019-07-12] MEDS ORDERED: ALBUTEROL/IPRATROPIUM 3 ML NEB RESP TX PRN (16:58)
[2019-07-12] MEDS ORDERED: INSULIN LISPRO PROTAMINE/LISPRO 75/25 100 UNIT/ML SUBCUT SCH (17:00)
[2019-07-12] MEDS: ALBUTEROL/IPRATROPIUM 3 ML NEB RESP TX SCH (20:02)
[2019-07-12] MEDS: guaiFENesin/DM ER 600-30 MG TABLET PO SCH (21:28)
[2019-07-12] MEDS: POTASSIUM CHLORIDE 20 MEQ TABLET PO SCH (21:28)
[2019-07-12] MEDS: PENICILLIN VK 500 MG TABLET PO SCH (21:28)
[2019-07-12] MEDS: GABAPENTIN 600 MG TABLET PO SCH (21:28)
[2019-07-12] MEDS: carvediloL 25 MG TABLET PO SCH (21:28)
[2019-07-13] MEDS: ALBUTEROL/IPRATROPIUM 3 ML NEB RESP TX SCH ×2 (01:49→07:56)
[2019-07-13 04:55] LABS: Basophils # 0.1 10*3/uL (0.0-0.2); Basophils % 0.5 % (0.0-0.8); Eosinophils # 0.1 10*3/uL (0.0-0.87); Eosinophils % 1.4 % (0.00-10.9); Hematocrit 33.5 VOL% (42.0-52.0); Hemoglobin 10.2 GM/DL (14.0-18.0); Immature Granulocytes % 0.4 %; Immature Granulocytes Absolute 0.04 #; Lymphocytes # 1.7 10*3/uL (1.4-4.0); Lymphocytes % 17.4 % (21.2-54.2); Mean Corpuscular HGB Conc 30.4 GM/DL (32-36); Mean Corpuscular Volume 80.7 FL (87-102); Mean Platelet Volume 11.6 FL (9.6-12.0); Monocytes % 10.9 % (1.7-12.7); Neutrophils % 69.4 % (38.7-73.9); Platelet Count 240 T/CUMM (130-400); Red Blood Count 4.15 MC/CUMM (3.8-5.5); White Blood Count 9.5 T/CUMM (4-12)
[2019-07-13 05:08] LABS: Calcium 8.3 MG/DL (8.5-10.1); Osmolality,Calculated 297.4 MOS/KG (273-304)
[2019-07-13 05:14] LABS: % Iron Saturation 8.6 % (18-50); Ferritin 83.7 ng/ml (26-388)
[2019-07-13] MEDS: BRINZOLAMIDE 1% OPH SUSP 10 ML BOTTLE BOTH EYES SCH (06:24)
[2019-07-13] MEDS ORDERED: LEVOTHYROXINE 50 MCG TABLET PO SCH (07:00)
[2019-07-13] MEDS ORDERED: INSULIN LISPRO PROTAMINE/LISPRO 75/25 100 UNIT/ML SUBCUT SCH (08:00)
[2019-07-13] MEDS ORDERED: POTASSIUM CHLORIDE 20 MEQ TABLET PO ONE (08:59)
[2019-07-13] MEDS ORDERED: AMIODARONE 200 MG TABLET PO SCH (09:00)
[2019-07-13] MEDS ORDERED: ISOSORBIDE MONONITRATE 30 MG TABLET PO SCH (09:00)
[2019-07-13] MEDS ORDERED: PANTOPRAZOLE 40 MG TABLET PO SCH (09:00)
[2019-07-13] MEDS ORDERED: allopurinoL 300 MG TABLET PO SCH (09:00)
[2019-07-13] MEDS ORDERED: amLODIPine 10 MG TABLET PO SCH (09:00)
[2019-07-13] MEDS ORDERED: ASPIRIN EC 81 MG TABLET PO SCH (09:00)
[2019-07-13] MEDS ORDERED: DULoxetine 30 MG CAPSULE PO SCH (09:00)
[2019-07-13] MEDS ORDERED: DIGOXIN 0.125 MG TABLET PO SCH (09:00)
[2019-07-13] MEDS ORDERED: DOXAZOSIN 4 MG TABLET PO SCH (09:00)
[2019-07-13] MEDS: INSULIN LISPRO 100 UNIT/ML SUBCUT SCH (09:25)
[2019-07-13] MEDS: FUROSEMIDE 80 MG TABLET PO SCH (10:04)
[2019-07-13] MEDS: GABAPENTIN 600 MG TABLET PO SCH (10:05)
[2019-07-13] MEDS: hydrALAZINE 10 MG TABLET PO SCH (10:06)
[2019-07-13] MEDS: carvediloL 25 MG TABLET PO SCH (10:07)
[2019-07-13] MEDS: PENICILLIN VK 500 MG TABLET PO SCH (10:09)
[2019-07-13] MEDS: FLUTICASONE 50 MCG NASAL SPRAY 16 GM BOTTLE BOTH NARES SCH (10:10)
[2019-07-13] MEDS: POTASSIUM CHLORIDE 20 MEQ TABLET PO SCH (10:12)
[2019-07-13] MEDS: guaiFENesin/DM ER 600-30 MG TABLET PO SCH (10:14)
[2019-07-13 12:10] VITALS: BP 124/53
[2019-07-13] MEDS ORDERED: WARFARIN 5 MG TABLET PO SCH (18:00)
[2019-07-14] MEDS ORDERED: WARFARIN 5 MG TABLET PO SCH (18:00)
== END 2019-07-13 12:05 | disposition home or self-care (01) ==
LOC: N.EDINP 07:00 → N.ED 07:00 → N.2W 12:36
PROVIDERS: ADMIT Internal Medicine; ATTEND Internal Medicine

== ENCOUNTER 2019-08-20 14:20 | Inpatient (IN) ==
[2019-08-20 15:22] LABS: Basophils # 0.1 10*3/uL (0.0-0.2); Basophils % 0.6 % (0.0-0.8); Eosinophils % 0.1 % (0.00-10.9); Hematocrit 30.5 VOL% (42.0-52.0); Hemoglobin 9.5 GM/DL (14.0-18.0); Immature Granulocytes % 0.4 %; Immature Granulocytes Absolute 0.04 #; Lymphocytes % 9.1 % (21.2-54.2); Mean Corpuscular HGB Conc 31.1 GM/DL (32-36); Mean Corpuscular Volume 80.1 FL (87-102); Mean Platelet Volume 11.9 FL (9.6-12.0); Monocytes % 13.3 % (1.7-12.7); NRBC # 0.02 10*3/uL; Neutrophils % 76.5 % (38.7-73.9); Platelet Count 183 T/CUMM (130-400); Red Blood Count 3.81 MC/CUMM (3.8-5.5); Red Cell Distribution Width 20.4 % (9.3-17.3); White Blood Count 10.7 T/CUMM (4-12)
[2019-08-20 15:34] LABS: INR 1.9; PT Patient Result 20.1 SECS (9.6-12.2)
[2019-08-20 15:44] LABS: Bilirubin,Total 0.7 MG/DL (0.2-1.0); Osmolality,Calculated 294.7 MOS/KG (273-304); Total Protein 7.2 G/DL (6.4-8.3)
[2019-08-20] MEDS ORDERED: CETIRIZINE 10 MG TABLET PO PRN (16:49)
[2019-08-20] MEDS ORDERED: FUROSEMIDE 40 MG/4 ML VIAL IV STA (16:56)
[2019-08-20] MEDS ORDERED: GLUCAGON 1 MG VIAL IM PRN ×2 (17:25→17:27)
[2019-08-20] MEDS ORDERED: DEXTROSE 10% 250 ML BAG IV PRN (17:25)
[2019-08-20] MEDS ORDERED: DEXTROSE 50% 25 GM/50 ML VIAL IV PRN (17:27)
[2019-08-20] MEDS: cefTRIAXone 1,000 MG in SYRINGE 1 EACH IV SCH (18:01)
[2019-08-20] MEDS: INSULIN LISPRO PROTAMINE/LISPRO 75/25 100 UNIT/ML SUBCUT SCH (18:03)
[2019-08-20] MEDS: WARFARIN 5 MG TABLET PO SCH (18:04)
[2019-08-20] MEDS: hydrALAZINE 10 MG TABLET PO SCH (20:53)
[2019-08-20] MEDS: GABAPENTIN 600 MG TABLET PO SCH (20:53)
[2019-08-20] MEDS: carvediloL 25 MG TABLET PO SCH (20:53)
[2019-08-20] MEDS: INSULIN REGULAR 100 UNIT/ML SUBCUT SCH (20:54)
[2019-08-20] MEDS: BRINZOLAMIDE 1% OPH SUSP 10 ML BOTTLE BOTH EYES SCH ×2 (21:03→22:42)
[2019-08-20] MEDS ORDERED: ALBUTEROL/IPRATROPIUM 3 ML NEB RESP TX PRN (21:30)
[2019-08-20] MEDS ORDERED: ALBUTEROL/IPRATROPIUM 3 ML NEB RESP TX SCH (21:30)
[2019-08-21] MEDS: ALBUTEROL/IPRATROPIUM 3 ML NEB RESP TX SCH ×4 (00:33→19:51)
[2019-08-21] MEDS ORDERED: ALBUTEROL/IPRATROPIUM 3 ML NEB RESP TX SCH (01:00)
[2019-08-21 04:52] LABS: Basophils # 0.1 10*3/uL (0.0-0.2); Basophils % 0.7 % (0.0-0.8); Eosinophils # 0.1 10*3/uL (0.0-0.87); Eosinophils % 0.6 % (0.00-10.9); Hematocrit 30.5 VOL% (42.0-52.0); Hemoglobin 9.3 GM/DL (14.0-18.0); Immature Granulocytes % 0.4 %; Immature Granulocytes Absolute 0.04 #; Lymphocytes # 1.2 10*3/uL (1.4-4.0); Lymphocytes % 13.5 % (21.2-54.2); Mean Corpuscular HGB Conc 30.5 GM/DL (32-36); Mean Corpuscular Volume 79.8 FL (87-102); Mean Platelet Volume 12.3 FL (9.6-12.0); Monocytes % 16.9 % (1.7-12.7); NRBC # 0.02 10*3/uL; Neutrophils % 67.9 % (38.7-73.9); Platelet Count 179 T/CUMM (130-400); Red Blood Count 3.82 MC/CUMM (3.8-5.5); Red Cell Distribution Width 20.4 % (9.3-17.3); White Blood Count 8.9 T/CUMM (4-12)
[2019-08-21 05:54] LABS: Lymphocytes 14 % (20-55); Segmented Neutrophils 72 % (50-85); Total Cells Counted 100
[2019-08-21 05:55] LABS: Atypical Lymphocytes Few; Hypochromasia 2+; Platelet Estimate Normal; Target Cells 1+
[2019-08-21 05:57] LABS: Thyroid Stimulating Hormone 3.41 uIU/ml (0.358-3.74)
[2019-08-21] MEDS: BRINZOLAMIDE 1% OPH SUSP 10 ML BOTTLE BOTH EYES SCH ×4 (06:23→23:29)
[2019-08-21] MEDS: LEVOTHYROXINE 50 MCG TABLET PO SCH (06:23)
[2019-08-21 07:17] LABS: Albumin 2.9 G/DL (3.4-5.0); Bilirubin,Total 0.6 MG/DL (0.2-1.0); Calcium 8.3 MG/DL (8.5-10.1); Osmolality,Calculated 291.8 MOS/KG (273-304); Total Protein 6.7 G/DL (6.4-8.3)
[2019-08-21] MEDS: carvediloL 25 MG TABLET PO SCH ×2 (08:23→16:27)
[2019-08-21] MEDS: INSULIN REGULAR 100 UNIT/ML SUBCUT SCH ×4 (08:23→21:11)
[2019-08-21] MEDS: hydrALAZINE 10 MG TABLET PO SCH ×3 (08:24→21:11)
[2019-08-21] MEDS: INSULIN LISPRO PROTAMINE/LISPRO 75/25 100 UNIT/ML SUBCUT SCH ×2 (08:24→16:45)
[2019-08-21] MEDS: FLUTICASONE 50 MCG NASAL SPRAY 16 GM BOTTLE BOTH NARES SCH (08:25)
[2019-08-21] MEDS: AMIODARONE 200 MG TABLET PO SCH (08:25)
[2019-08-21] MEDS: GABAPENTIN 600 MG TABLET PO SCH ×2 (08:26→21:11)
[2019-08-21] MEDS: ISOSORBIDE MONONITRATE 60 MG TABLET PO SCH (08:26)
[2019-08-21] MEDS: ASPIRIN EC 81 MG TABLET PO SCH (08:34)
[2019-08-21] MEDS: allopurinoL 300 MG TABLET PO SCH (08:34)
[2019-08-21] MEDS: DOXAZOSIN 4 MG TABLET PO SCH (08:34)
[2019-08-21] MEDS: DULoxetine 30 MG CAPSULE PO SCH (08:34)
[2019-08-21] MEDS ORDERED: SODIUM CHLORIDE 0.9% 100 ML IV ONE (08:53)
[2019-08-21] MEDS: FUROSEMIDE 40 MG/4 ML VIAL IV SCH ×2 (09:22→21:11)
[2019-08-21] MEDS ORDERED: RACEPINEPHRINE 0.5 ML NEB RESP TX ONE (09:24)
[2019-08-21] MEDS: cefTRIAXone 1,000 MG in SYRINGE 1 EACH IV SCH (09:37)
[2019-08-21] MEDS: methylPREDNISolone SOD SUC 125 MG/2 ML VIAL IV SCH ×2 (10:17→16:46)
[2019-08-21] MEDS: DIGOXIN 0.125 MG TABLET PO SCH (13:01)
[2019-08-21] MEDS: WARFARIN 5 MG TABLET PO SCH (17:14)
[2019-08-22] MEDS: ALBUTEROL/IPRATROPIUM 3 ML NEB RESP TX SCH ×4 (01:28→19:29)
[2019-08-22] MEDS: methylPREDNISolone SOD SUC 125 MG/2 ML VIAL IV SCH ×2 (02:26→09:17)
[2019-08-22] MEDS: LEVOTHYROXINE 50 MCG TABLET PO SCH (06:10)
[2019-08-22] MEDS: BRINZOLAMIDE 1% OPH SUSP 10 ML BOTTLE BOTH EYES SCH ×3 (06:10→22:21)
[2019-08-22 08:40] LABS: Hemoglobin 9.4 GM/DL (14.0-18.0); Immature Granulocytes % 0.5 %; Immature Granulocytes Absolute 0.03 #; Lymphocytes # 0.7 10*3/uL (1.4-4.0); Lymphocytes % 10.1 % (21.2-54.2); Mean Corpuscular HGB Conc 31.3 GM/DL (32-36); Mean Corpuscular Volume 79.4 FL (87-102); Mean Platelet Volume 11.9 FL (9.6-12.0); Monocytes % 1.7 % (1.7-12.7); Neutrophils % 87.7 % (38.7-73.9); Platelet Count 176 T/CUMM (130-400); Red Blood Count 3.78 MC/CUMM (3.8-5.5); Red Cell Distribution Width 19.9 % (9.3-17.3); White Blood Count 6.4 T/CUMM (4-12)
[2019-08-22 08:57] LABS: Calcium 8.5 MG/DL (8.5-10.1); Osmolality,Calculated 300.1 MOS/KG (273-304)
[2019-08-22] MEDS: INSULIN REGULAR 100 UNIT/ML SUBCUT SCH ×4 (09:16→22:23)
[2019-08-22] MEDS: FUROSEMIDE 40 MG/4 ML VIAL IV SCH ×2 (09:16→22:22)
[2019-08-22] MEDS: INSULIN LISPRO PROTAMINE/LISPRO 75/25 100 UNIT/ML SUBCUT SCH ×2 (09:17→17:13)
[2019-08-22] MEDS: FLUTICASONE 50 MCG NASAL SPRAY 16 GM BOTTLE BOTH NARES SCH (09:17)
[2019-08-22] MEDS: cefTRIAXone 1,000 MG in SYRINGE 1 EACH IV SCH (09:17)
[2019-08-22] MEDS: allopurinoL 300 MG TABLET PO SCH (09:18)
[2019-08-22] MEDS: hydrALAZINE 10 MG TABLET PO SCH ×3 (09:18→22:23)
[2019-08-22] MEDS: carvediloL 25 MG TABLET PO SCH ×2 (09:18→17:13)
[2019-08-22] MEDS: DOXAZOSIN 4 MG TABLET PO SCH (09:18)
[2019-08-22] MEDS: DULoxetine 30 MG CAPSULE PO SCH (09:18)
[2019-08-22] MEDS: GABAPENTIN 600 MG TABLET PO SCH ×2 (09:19→22:22)
[2019-08-22] MEDS: ASPIRIN EC 81 MG TABLET PO SCH (09:19)
[2019-08-22] MEDS: ISOSORBIDE MONONITRATE 60 MG TABLET PO SCH (09:19)
[2019-08-22] MEDS: AMIODARONE 200 MG TABLET PO SCH (09:19)
[2019-08-22] MEDS: POTASSIUM CHLORIDE 20 MEQ TABLET PO PRN ×4 (10:06→17:13)
[2019-08-22] MEDS: DIGOXIN 0.125 MG TABLET PO SCH (12:35)
[2019-08-22] MEDS: WARFARIN 5 MG TABLET PO SCH (17:13)
[2019-08-22] MEDS ORDERED: methylPREDNISolone 4 MG TABLET PO SCH (21:00)
[2019-08-22] MEDS: traMADol 50 MG TABLET PO PRN (22:21)
[2019-08-23] MEDS: POTASSIUM CHLORIDE 20 MEQ TABLET PO PRN ×4 (00:02→06:05)
[2019-08-23] MEDS: ALBUTEROL/IPRATROPIUM 3 ML NEB RESP TX SCH ×4 (00:09→19:51)
[2019-08-23 05:29] LABS: Basophils % 0.1 % (0.0-0.8); Hematocrit 29.7 VOL% (42.0-52.0); Hemoglobin 9.2 GM/DL (14.0-18.0); Immature Granulocytes % 0.6 %; Immature Granulocytes Absolute 0.07 #; Lymphocytes # 0.6 10*3/uL (1.4-4.0); Lymphocytes % 5.3 % (21.2-54.2); Mean Platelet Volume 12.7 FL (9.6-12.0); Monocytes % 3.1 % (1.7-12.7); NRBC # 0.03 10*3/uL; Neutrophils % 90.9 % (38.7-73.9); Platelet Count 185 T/CUMM (130-400); Red Blood Count 3.76 MC/CUMM (3.8-5.5); Red Cell Distribution Width 20.2 % (9.3-17.3); White Blood Count 12.2 T/CUMM (4-12)
[2019-08-23 06:23] LABS: Anisocytosis 1+; Lymphocytes 10 % (20-55); Segmented Neutrophils 86 % (50-85); Total Cells Counted 100
[2019-08-23 06:24] LABS: Platelet Estimate Adequate
[2019-08-23] MEDS: BRINZOLAMIDE 1% OPH SUSP 10 ML BOTTLE BOTH EYES SCH ×3 (06:53→23:48)
[2019-08-23] MEDS: LEVOTHYROXINE 50 MCG TABLET PO SCH (06:53)
[2019-08-23] MEDS: INSULIN REGULAR 100 UNIT/ML SUBCUT SCH ×2 (08:20→12:15)
[2019-08-23] MEDS: cefTRIAXone 1,000 MG in SYRINGE 1 EACH IV SCH (08:30)
[2019-08-23] MEDS: FUROSEMIDE 40 MG/4 ML VIAL IV SCH ×2 (08:30→21:57)
[2019-08-23] MEDS: carvediloL 25 MG TABLET PO SCH ×2 (08:31→17:29)
[2019-08-23] MEDS: INSULIN LISPRO PROTAMINE/LISPRO 75/25 100 UNIT/ML SUBCUT SCH ×2 (08:31→17:08)
[2019-08-23] MEDS: AMIODARONE 200 MG TABLET PO SCH (08:31)
[2019-08-23] MEDS: GABAPENTIN 600 MG TABLET PO SCH ×2 (08:31→21:58)
[2019-08-23] MEDS: ASPIRIN EC 81 MG TABLET PO SCH (08:31)
[2019-08-23] MEDS: DOXAZOSIN 4 MG TABLET PO SCH (08:31)
[2019-08-23] MEDS: DULoxetine 30 MG CAPSULE PO SCH (08:31)
[2019-08-23] MEDS: allopurinoL 300 MG TABLET PO SCH (08:32)
[2019-08-23] MEDS: hydrALAZINE 10 MG TABLET PO SCH ×3 (08:32→21:58)
[2019-08-23] MEDS: ISOSORBIDE MONONITRATE 60 MG TABLET PO SCH (08:32)
[2019-08-23] MEDS: FLUTICASONE 50 MCG NASAL SPRAY 16 GM BOTTLE BOTH NARES SCH (08:33)
[2019-08-23 09:44] LABS: INR 2.5
[2019-08-23 09:48] LABS: Calcium 8.6 MG/DL (8.5-10.1); Osmolality,Calculated 300.8 MOS/KG (273-304)
[2019-08-23 09:56] LABS: PT Patient Result 27.2 SECS (9.6-12.2)
[2019-08-23] MEDS ORDERED: POTASSIUM CHLORIDE 20 MEQ TABLET PO ONE (12:33)
[2019-08-23] MEDS: DIGOXIN 0.125 MG TABLET PO SCH (12:37)
[2019-08-23] MEDS: INSULIN LISPRO 100 UNIT/ML SUBCUT SCH ×3 (12:40→21:57)
[2019-08-23] MEDS: DOXYCYCLINE HYCLATE INJ 100 MG in SODIUM CHLORIDE 0.9% 100 ML IV SCH ×2 (12:40→23:48)
[2019-08-23] MEDS: traMADol 50 MG TABLET PO PRN (15:01)
[2019-08-23] MEDS: WARFARIN 5 MG TABLET PO SCH (17:29)
[2019-08-24] MEDS: ALBUTEROL/IPRATROPIUM 3 ML NEB RESP TX SCH ×4 (00:43→19:21)
[2019-08-24] MEDS: traMADol 50 MG TABLET PO PRN ×3 (04:54→21:19)
[2019-08-24] MEDS: BRINZOLAMIDE 1% OPH SUSP 10 ML BOTTLE BOTH EYES SCH ×3 (06:41→22:59)
[2019-08-24] MEDS: LEVOTHYROXINE 50 MCG TABLET PO SCH (06:41)
[2019-08-24] MEDS: INSULIN LISPRO 100 UNIT/ML SUBCUT SCH ×4 (07:54→21:20)
[2019-08-24] MEDS: ISOSORBIDE MONONITRATE 60 MG TABLET PO SCH (08:07)
[2019-08-24] MEDS: POTASSIUM CHLORIDE 20 MEQ TABLET PO PRN ×6 (08:07→23:00)
[2019-08-24] MEDS: carvediloL 25 MG TABLET PO SCH ×2 (08:07→16:57)
[2019-08-24] MEDS: ASPIRIN EC 81 MG TABLET PO SCH (08:07)
[2019-08-24] MEDS: allopurinoL 300 MG TABLET PO SCH (08:07)
[2019-08-24] MEDS: AMIODARONE 200 MG TABLET PO SCH (08:07)
[2019-08-24] MEDS: DULoxetine 30 MG CAPSULE PO SCH (08:07)
[2019-08-24] MEDS: INSULIN LISPRO PROTAMINE/LISPRO 75/25 100 UNIT/ML SUBCUT SCH ×2 (08:08→16:49)
[2019-08-24] MEDS: GABAPENTIN 600 MG TABLET PO SCH ×2 (08:08→21:18)
[2019-08-24] MEDS: hydrALAZINE 10 MG TABLET PO SCH ×3 (08:08→20:13)
[2019-08-24] MEDS: cefTRIAXone 1,000 MG in SYRINGE 1 EACH IV SCH (08:11)
[2019-08-24] MEDS: FLUTICASONE 50 MCG NASAL SPRAY 16 GM BOTTLE BOTH NARES SCH (08:12)
[2019-08-24] MEDS: FUROSEMIDE 40 MG/4 ML VIAL IV SCH ×2 (08:12→21:20)
[2019-08-24] MEDS: DOXAZOSIN 4 MG TABLET PO SCH (10:11)
[2019-08-24] MEDS: DOXYCYCLINE HYCLATE INJ 100 MG in SODIUM CHLORIDE 0.9% 100 ML IV SCH (13:33)
[2019-08-24] MEDS: DIGOXIN 0.125 MG TABLET PO SCH (13:34)
[2019-08-24] MEDS: WARFARIN 5 MG TABLET PO SCH (16:57)
[2019-08-24] MEDS: LEVOFLOXACIN 750 MG TABLET PO SCH (21:18)
[2019-08-25] MEDS: ALBUTEROL/IPRATROPIUM 3 ML NEB RESP TX SCH ×4 (00:40→19:33)
[2019-08-25] MEDS: POTASSIUM CHLORIDE 20 MEQ TABLET PO PRN ×5 (01:10→21:14)
[2019-08-25] MEDS: LEVOTHYROXINE 50 MCG TABLET PO SCH (06:04)
[2019-08-25] MEDS: BRINZOLAMIDE 1% OPH SUSP 10 ML BOTTLE BOTH EYES SCH ×4 (06:05→23:17)
[2019-08-25] MEDS ORDERED: MAGNESIUM SULF RIDER 2 GM in PREMIX 1 EACH IV PRN (09:16)
[2019-08-25] MEDS ORDERED: MAGNESIUM SULF RIDER 4 GM in PREMIX 1 EACH IV PRN (09:16)
[2019-08-25] MEDS: DOXAZOSIN 4 MG TABLET PO SCH (09:26)
[2019-08-25] MEDS: DULoxetine 30 MG CAPSULE PO SCH (09:26)
[2019-08-25] MEDS: GABAPENTIN 600 MG TABLET PO SCH ×2 (09:27→21:14)
[2019-08-25] MEDS: ISOSORBIDE MONONITRATE 60 MG TABLET PO SCH (09:27)
[2019-08-25] MEDS: carvediloL 25 MG TABLET PO SCH ×2 (09:27→17:48)
[2019-08-25] MEDS: AMIODARONE 200 MG TABLET PO SCH (09:28)
[2019-08-25] MEDS: allopurinoL 300 MG TABLET PO SCH (09:28)
[2019-08-25] MEDS: ASPIRIN EC 81 MG TABLET PO SCH (09:29)
[2019-08-25] MEDS: FUROSEMIDE 40 MG/4 ML VIAL IV SCH (09:29)
[2019-08-25] MEDS: INSULIN LISPRO 100 UNIT/ML SUBCUT SCH ×4 (09:32→21:15)
[2019-08-25] MEDS: FLUTICASONE 50 MCG NASAL SPRAY 16 GM BOTTLE BOTH NARES SCH (09:35)
[2019-08-25] MEDS: INSULIN LISPRO PROTAMINE/LISPRO 75/25 100 UNIT/ML SUBCUT SCH ×2 (09:35→17:13)
[2019-08-25] MEDS: hydrALAZINE 10 MG TABLET PO SCH ×3 (09:36→21:14)
[2019-08-25 09:40] LABS: Basophils % 0.1 % (0.0-0.8); Eosinophils # 0.1 10*3/uL (0.0-0.87); Eosinophils % 0.6 % (0.00-10.9); Hematocrit 34.7 VOL% (42.0-52.0); Hemoglobin 10.4 GM/DL (14.0-18.0); Immature Granulocytes % 0.5 %; Immature Granulocytes Absolute 0.04 #; Lymphocytes % 12.5 % (21.2-54.2); Mean Corpuscular Volume 82.6 FL (87-102); Monocytes % 10.1 % (1.7-12.7); NRBC # 0.02 10*3/uL; Neutrophils % 76.2 % (38.7-73.9); Platelet Count 176 T/CUMM (130-400); Red Cell Distribution Width 20.9 % (9.3-17.3); White Blood Count 8.1 T/CUMM (4-12)
[2019-08-25 10:01] LABS: Albumin 2.9 G/DL (3.4-5.0); Bilirubin,Total 0.5 MG/DL (0.2-1.0); Calcium 8.5 MG/DL (8.5-10.1); Osmolality,Calculated 304.4 MOS/KG (273-304); Total Protein 7.2 G/DL (6.4-8.3)
[2019-08-25 10:05] LABS: Eosinophils 1 % (0-10); Lymphocytes 10 % (20-55); Platelet Estimate Adequate; Segmented Neutrophils 80 % (50-85); Total Cells Counted 100
[2019-08-25 10:06] LABS: Hypochromasia 1+; Ovalocytes Slight
[2019-08-25] MEDS ORDERED: FUROSEMIDE 40 MG/4 ML VIAL IV ONE (11:20)
[2019-08-25] MEDS: DIGOXIN 0.125 MG TABLET PO SCH (13:14)
[2019-08-25] MEDS ORDERED: FUROSEMIDE 40 MG/4 ML VIAL IV SCH (16:00)
[2019-08-25] MEDS: FUROSEMIDE 80 MG TABLET PO SCH (16:01)
[2019-08-25] MEDS: WARFARIN 5 MG TABLET PO SCH (17:48)
[2019-08-25] MEDS: LEVOFLOXACIN 750 MG TABLET PO SCH (21:14)
[2019-08-26] MEDS: ALBUTEROL/IPRATROPIUM 3 ML NEB RESP TX SCH ×2 (00:30→07:35)
[2019-08-26] MEDS: LEVOTHYROXINE 50 MCG TABLET PO SCH (06:09)
[2019-08-26] MEDS: BRINZOLAMIDE 1% OPH SUSP 10 ML BOTTLE BOTH EYES SCH (06:12)
[2019-08-26] MEDS: INSULIN LISPRO 100 UNIT/ML SUBCUT SCH (07:54)
[2019-08-26 08:46] VITALS: BP 122/72
[2019-08-26] MEDS: ISOSORBIDE MONONITRATE 60 MG TABLET PO SCH (09:19)
[2019-08-26] MEDS: allopurinoL 300 MG TABLET PO SCH (09:19)
[2019-08-26] MEDS: ASPIRIN EC 81 MG TABLET PO SCH (09:20)
[2019-08-26] MEDS: DOXAZOSIN 4 MG TABLET PO SCH (09:20)
[2019-08-26] MEDS: carvediloL 25 MG TABLET PO SCH (09:20)
[2019-08-26] MEDS: GABAPENTIN 600 MG TABLET PO SCH (09:20)
[2019-08-26] MEDS: DULoxetine 30 MG CAPSULE PO SCH (09:20)
[2019-08-26] MEDS: hydrALAZINE 10 MG TABLET PO SCH (09:20)
[2019-08-26] MEDS: AMIODARONE 200 MG TABLET PO SCH (09:20)
[2019-08-26] MEDS: FUROSEMIDE 80 MG TABLET PO SCH (09:21)
[2019-08-26] MEDS: FLUTICASONE 50 MCG NASAL SPRAY 16 GM BOTTLE BOTH NARES SCH (09:25)
[2019-08-26] MEDS: INSULIN LISPRO PROTAMINE/LISPRO 75/25 100 UNIT/ML SUBCUT SCH (09:26)
== END 2019-08-26 11:36 | disposition home health service (06) | DRG 291 ==
LOC: N.ED 14:20 → N.EDINP 16:46 → SUATTDRO 16:46 → N.TELES 17:04
PROVIDERS: ADMIT Family Medicine; ATTEND Internal Medicine

== ENCOUNTER 2020-04-17 18:25 | Inpatient (IN) ==
[2020-04-17 20:11] LABS: Basophils # 0.1 10*3/uL (0.0-0.2); Basophils % 0.6 % (0.0-0.8); Eosinophils # 0.3 10*3/uL (0.0-0.87); Eosinophils % 3.3 % (0.00-10.9); Hematocrit 43.6 VOL% (42.0-52.0); Hemoglobin 13.9 GM/DL (14.0-18.0); Immature Granulocytes % 0.3 %; Immature Granulocytes Absolute 0.03 #; Lymphocytes # 0.9 10*3/uL (1.4-4.0); Lymphocytes % 10.3 % (21.2-54.2); Mean Corpuscular HGB Conc 31.9 GM/DL (32-36); Mean Platelet Volume 13.1 FL (9.6-12.0); Neutrophils % 75.5 % (38.7-73.9); Platelet Count 242 T/CUMM (130-400); Red Blood Count 5.13 MC/CUMM (3.8-5.5); Red Cell Distribution Width 18.2 % (9.3-17.3); White Blood Count 8.6 T/CUMM (4-12)
[2020-04-17 20:53] LABS: Albumin 3.9 G/DL (3.4-5.0); Bilirubin,Total 0.6 MG/DL (0.2-1.0); Calcium 9.5 MG/DL (8.5-10.1); Free T4 (Free Thyroxine) 1.37 NG/DL (0.76-1.46); Osmolality,Calculated 304.5 MOS/KG (273-304); Thyroid Stimulating Hormone 2.5 uIU/ml (0.358-3.74); Total Protein 8.9 G/DL (6.4-8.3)
[2020-04-17] MEDS ORDERED: POTASSIUM CHLORIDE RIDER 20 MEQ in PREMIX 1 EACH IV ONE ×2 (21:04→21:30)
[2020-04-17] MEDS ORDERED: SODIUM CHLORIDE 0.9% 1,000 ML IV STA (21:04)
[2020-04-17] MEDS ORDERED: SODIUM CHLORIDE 0.9% 500 ML IV STA (22:12)
[2020-04-17] MEDS ORDERED: MAGNESIUM SULF RIDER 4 GM in PREMIX 1 EACH IV PRN (22:22)
[2020-04-17] MEDS ORDERED: MAGNESIUM SULF RIDER 2 GM in PREMIX 1 EACH IV PRN (22:22)
[2020-04-17] MEDS ORDERED: GLUCAGON 1 MG VIAL IM PRN (22:25)
[2020-04-17] MEDS ORDERED: DEXTROSE 50% 25 GM/50 ML VIAL IV PRN (22:25)
[2020-04-17] MEDS ORDERED: LACTULOSE 20 GM/30 ML UDCUP PO PRN (22:31)
[2020-04-17] MEDS ORDERED: ACETAMINOPHEN 325 MG TABLET PO PRN (22:31)
[2020-04-17] MEDS ORDERED: ONDANSETRON 4 MG/2 ML VIAL IV PRN (22:31)
[2020-04-17] MEDS ORDERED: DEXTROSE 50% 25 GM/50 ML SYRINGE IV PRN (22:41)
[2020-04-17] MEDS ORDERED: ALBUTEROL 2.5 MG/3 ML NEB RESP TX PRN (22:51)
[2020-04-17] MEDS ORDERED: POLYETHYLENE GLYCOL POWDER 17 GM PACK PO PRN (22:51)
[2020-04-17] MEDS: SODIUM CHLORIDE 0.9% 1,000 ML IV SCH (22:52)
[2020-04-17] MEDS: POTASSIUM CHLORIDE RIDER 10 MEQ in PREMIX 1 EACH IV PRN (23:41)
[2020-04-18] MEDS: POTASSIUM CHLORIDE RIDER 10 MEQ in PREMIX 1 EACH IV PRN ×11 (00:38→23:39)
[2020-04-18] MEDS: LEVOTHYROXINE 50 MCG TABLET PO SCH (05:13)
[2020-04-18 06:05] LABS: Basophils % 0.5 % (0.0-0.8); Eosinophils # 0.3 10*3/uL (0.0-0.87); Eosinophils % 3.4 % (0.00-10.9); Hematocrit 42.2 VOL% (42.0-52.0); Hemoglobin 13.4 GM/DL (14.0-18.0); Immature Granulocytes % 0.5 %; Immature Granulocytes Absolute 0.04 #; Lymphocytes # 1.1 10*3/uL (1.4-4.0); Lymphocytes % 13.3 % (21.2-54.2); Mean Corpuscular HGB Conc 31.8 GM/DL (32-36); Mean Corpuscular Volume 85.3 FL (87-102); Mean Platelet Volume 12.6 FL (9.6-12.0); Monocytes % 12.9 % (1.7-12.7); Neutrophils % 69.4 % (38.7-73.9); Platelet Count 204 T/CUMM (130-400); Red Blood Count 4.95 MC/CUMM (3.8-5.5); Red Cell Distribution Width 17.5 % (9.3-17.3); White Blood Count 8.5 T/CUMM (4-12)
[2020-04-18 06:13] LABS: INR 4.6
[2020-04-18 06:14] LABS: PT Patient Result 45.6 SECS (9.8-11.9)
[2020-04-18 06:50] LABS: Albumin 3.7 G/DL (3.4-5.0); Bilirubin,Total 0.7 MG/DL (0.2-1.0); Calcium 9.1 MG/DL (8.5-10.1); Osmolality,Calculated 306.1 MOS/KG (273-304); Total Protein 8.5 G/DL (6.4-8.3)
[2020-04-18] MEDS: INSULIN LISPRO 100 UNIT/ML SUBCUT SCH ×4 (07:50→20:40)
[2020-04-18] MEDS ORDERED: FUROSEMIDE 40 MG TABLET PO SCH (08:00)
[2020-04-18] MEDS ORDERED: POTASSIUM CHLORIDE 20 MEQ TABLET PO SCH (09:00)
[2020-04-18] MEDS ORDERED: POTASSIUM CHLORIDE 20 MEQ TABLET PO ONE (09:16)
[2020-04-18] MEDS: carvediloL 25 MG TABLET PO SCH ×2 (09:58→16:51)
[2020-04-18] MEDS: DULoxetine 30 MG CAPSULE PO SCH (09:58)
[2020-04-18] MEDS: ISOSORBIDE DINITRATE 20 MG TABLET PO SCH ×3 (09:58→21:15)
[2020-04-18] MEDS: AMIODARONE 200 MG TABLET PO SCH (09:58)
[2020-04-18] MEDS: GABAPENTIN 600 MG TABLET PO SCH ×2 (09:58→21:15)
[2020-04-18] MEDS: allopurinoL 300 MG TABLET PO SCH (09:58)
[2020-04-18] MEDS: DOXAZOSIN 4 MG TABLET PO SCH (09:59)
[2020-04-18] MEDS: LINACLOTIDE 145 MCG CAPSULE PO SCH (10:00)
[2020-04-18] MEDS: PANTOPRAZOLE 40 MG VIAL IV SCH (10:01)
[2020-04-18] MEDS: INSULIN LISPRO PROTAMINE/LISPRO 75/25 100 UNIT/ML SUBCUT SCH ×2 (10:36→16:52)
[2020-04-18] MEDS: SODIUM CHLORIDE 0.9% 1,000 ML IV SCH (10:50)
[2020-04-18] MEDS: POTASSIUM CHLORIDE 20 MEQ TABLET PO SCH ×2 (13:06→21:15)
[2020-04-18] MEDS: FLUTICASONE 50 MCG NASAL SPRAY 16 GM BOTTLE BOTH NARES SCH (13:07)
[2020-04-18] MEDS: DIGOXIN 0.125 MG TABLET PO SCH (14:15)
[2020-04-18 14:52] LABS: Bacteria,Urine Occasional /HPF (Few); Bilirubin,Urine Negative (Negative); Blood, Urine Negative (Negative); Glucose,Urine (UA) >=500 mg/dL (Negative); Ketones,Urine Negative (Negative); Mucus,Urine Many /LPF (Occasional); Nitrite,Urine Negative (Negative); Protein,Urine Negative; RBC,Urine 1 /HPF (0-4); Squamous Epithelial Cell,Urine Occasional /HPF (0-10); Urine Appearance CLEAR (Clear); Urine Color Yellow (Yellow); Urine Specific Gravity 1.007 (1.001-1.035); Urine Urobilinogen < 2.0 EU/DL (0.2-1.0); WBC,Urine 2 /HPF (0-6)
[2020-04-18] MEDS: ASPIRIN EC 81 MG TABLET PO SCH (21:16)
[2020-04-19] MEDS: POTASSIUM CHLORIDE RIDER 10 MEQ in PREMIX 1 EACH IV PRN ×8 (01:21→17:36)
[2020-04-19] MEDS: SODIUM CHLORIDE 0.9% 1,000 ML IV SCH ×2 (05:20→15:21)
[2020-04-19] MEDS: LEVOTHYROXINE 50 MCG TABLET PO SCH (05:28)
[2020-04-19 07:19] LABS: Calcium 8.8 MG/DL (8.5-10.1); Osmolality,Calculated 296.8 MOS/KG (273-304)
[2020-04-19] MEDS: INSULIN LISPRO 100 UNIT/ML SUBCUT SCH ×4 (08:04→21:06)
[2020-04-19] MEDS: GABAPENTIN 600 MG TABLET PO SCH ×2 (10:44→21:06)
[2020-04-19] MEDS: carvediloL 25 MG TABLET PO SCH ×2 (10:44→16:31)
[2020-04-19] MEDS: allopurinoL 300 MG TABLET PO SCH (10:44)
[2020-04-19] MEDS: DULoxetine 30 MG CAPSULE PO SCH (10:44)
[2020-04-19] MEDS: LINACLOTIDE 145 MCG CAPSULE PO SCH (10:44)
[2020-04-19] MEDS: POTASSIUM CHLORIDE 20 MEQ TABLET PO SCH ×2 (10:45→21:06)
[2020-04-19] MEDS: AMIODARONE 200 MG TABLET PO SCH (10:45)
[2020-04-19] MEDS: INSULIN LISPRO PROTAMINE/LISPRO 75/25 100 UNIT/ML SUBCUT SCH ×2 (10:45→16:31)
[2020-04-19] MEDS: PANTOPRAZOLE 40 MG VIAL IV SCH (10:45)
[2020-04-19] MEDS: ISOSORBIDE DINITRATE 20 MG TABLET PO SCH ×3 (10:45→21:06)
[2020-04-19] MEDS: FLUTICASONE 50 MCG NASAL SPRAY 16 GM BOTTLE BOTH NARES SCH (10:56)
[2020-04-19] MEDS: DOXAZOSIN 4 MG TABLET PO SCH (10:56)
[2020-04-19] MEDS: DIGOXIN 0.125 MG TABLET PO SCH (12:16)
[2020-04-19] MEDS: traMADol 50 MG TABLET PO PRN (15:18)
[2020-04-19] MEDS: ASPIRIN EC 81 MG TABLET PO SCH (21:06)
[2020-04-20 04:31] LABS: Basophils # 0.1 10*3/uL (0.0-0.2); Basophils % 0.6 % (0.0-0.8); Eosinophils # 0.4 10*3/uL (0.0-0.87); Eosinophils % 4.3 % (0.00-10.9); Hematocrit 31.9 VOL% (42.0-52.0); Hemoglobin 10.2 GM/DL (14.0-18.0); Immature Granulocytes % 0.2 %; Immature Granulocytes Absolute 0.02 #; Lymphocytes # 1.3 10*3/uL (1.4-4.0); Mean Corpuscular Volume 86.9 FL (87-102); Mean Platelet Volume 12.6 FL (9.6-12.0); Monocytes % 11.4 % (1.7-12.7); Neutrophils % 68.5 % (38.7-73.9); Platelet Count 149 T/CUMM (130-400); Red Blood Count 3.67 MC/CUMM (3.8-5.5); Red Cell Distribution Width 17.7 % (9.3-17.3); White Blood Count 8.6 T/CUMM (4-12)
[2020-04-20 04:44] LABS: INR 4.8; PT Patient Result 47.6 SECS (9.8-11.9)
[2020-04-20] MEDS: traMADol 50 MG TABLET PO PRN ×3 (04:50→21:08)
[2020-04-20] MEDS: SODIUM CHLORIDE 0.9% 1,000 ML IV SCH ×2 (04:50→18:02)
[2020-04-20 04:53] LABS: Hypochromasia 1+; Microcytosis 1+; Ovalocytes Slight; Platelet Estimate Adequate
[2020-04-20 05:09] LABS: Calcium 7.6 MG/DL (8.5-10.1); Osmolality,Calculated 293.5 MOS/KG (273-304)
[2020-04-20] MEDS: POTASSIUM CHLORIDE RIDER 10 MEQ in PREMIX 1 EACH IV PRN ×9 (05:38→23:20)
[2020-04-20] MEDS: LEVOTHYROXINE 50 MCG TABLET PO SCH (05:39)
[2020-04-20] MEDS: INSULIN LISPRO 100 UNIT/ML SUBCUT SCH ×4 (07:59→21:12)
[2020-04-20] MEDS: carvediloL 25 MG TABLET PO SCH ×2 (09:50→18:02)
[2020-04-20] MEDS: ISOSORBIDE DINITRATE 20 MG TABLET PO SCH ×3 (09:50→21:08)
[2020-04-20] MEDS: POTASSIUM CHLORIDE 20 MEQ TABLET PO SCH ×2 (09:50→21:08)
[2020-04-20] MEDS: DULoxetine 30 MG CAPSULE PO SCH (09:50)
[2020-04-20] MEDS: LINACLOTIDE 145 MCG CAPSULE PO SCH (09:50)
[2020-04-20] MEDS: DOXAZOSIN 4 MG TABLET PO SCH (09:50)
[2020-04-20] MEDS: allopurinoL 300 MG TABLET PO SCH (09:50)
[2020-04-20] MEDS: PANTOPRAZOLE 40 MG VIAL IV SCH (09:51)
[2020-04-20] MEDS: GABAPENTIN 600 MG TABLET PO SCH ×2 (09:51→21:09)
[2020-04-20] MEDS: AMIODARONE 200 MG TABLET PO SCH (09:51)
[2020-04-20] MEDS: INSULIN LISPRO PROTAMINE/LISPRO 75/25 100 UNIT/ML SUBCUT SCH ×2 (09:51→18:02)
[2020-04-20] MEDS: FLUTICASONE 50 MCG NASAL SPRAY 16 GM BOTTLE BOTH NARES SCH (09:56)
[2020-04-20] MEDS: DIGOXIN 0.125 MG TABLET PO SCH (13:51)
[2020-04-20] MEDS: ASPIRIN EC 81 MG TABLET PO SCH (21:08)
[2020-04-20] MEDS: FINASTERIDE 5 MG TABLET PO SCH (21:08)
[2020-04-21] MEDS: POTASSIUM CHLORIDE RIDER 10 MEQ in PREMIX 1 EACH IV PRN ×7 (00:20→18:47)
[2020-04-21] MEDS: traMADol 50 MG TABLET PO PRN ×3 (04:04→21:34)
[2020-04-21 04:28] LABS: Basophils # 0.1 10*3/uL (0.0-0.2); Basophils % 0.7 % (0.0-0.8); Eosinophils # 0.3 10*3/uL (0.0-0.87); Eosinophils % 3.9 % (0.00-10.9); Hematocrit 35.8 VOL% (42.0-52.0); Hemoglobin 11.1 GM/DL (14.0-18.0); Immature Granulocytes % 0.3 %; Immature Granulocytes Absolute 0.02 #; Lymphocytes # 1.4 10*3/uL (1.4-4.0); Lymphocytes % 18.5 % (21.2-54.2); Mean Corpuscular Volume 87.7 FL (87-102); Mean Platelet Volume 12.8 FL (9.6-12.0); Monocytes % 9.6 % (1.7-12.7); Platelet Count 184 T/CUMM (130-400); Red Blood Count 4.08 MC/CUMM (3.8-5.5); Red Cell Distribution Width 17.8 % (9.3-17.3); White Blood Count 7.6 T/CUMM (4-12)
[2020-04-21 04:53] LABS: Calcium 7.9 MG/DL (8.5-10.1); Osmolality,Calculated 290.4 MOS/KG (273-304)
[2020-04-21] MEDS: SODIUM CHLORIDE 0.9% 1,000 ML IV SCH (05:30)
[2020-04-21] MEDS: LEVOTHYROXINE 50 MCG TABLET PO SCH (05:32)
[2020-04-21] MEDS: allopurinoL 300 MG TABLET PO SCH (09:59)
[2020-04-21] MEDS: DULoxetine 30 MG CAPSULE PO SCH (09:59)
[2020-04-21] MEDS: POTASSIUM CHLORIDE 20 MEQ TABLET PO SCH ×2 (09:59→21:33)
[2020-04-21] MEDS: GABAPENTIN 600 MG TABLET PO SCH ×2 (10:00→21:33)
[2020-04-21] MEDS: carvediloL 25 MG TABLET PO SCH ×2 (10:00→16:59)
[2020-04-21] MEDS: ISOSORBIDE DINITRATE 20 MG TABLET PO SCH ×3 (10:00→21:34)
[2020-04-21] MEDS: DOXAZOSIN 4 MG TABLET PO SCH (10:00)
[2020-04-21] MEDS: LINACLOTIDE 145 MCG CAPSULE PO SCH (10:01)
[2020-04-21] MEDS: FLUTICASONE 50 MCG NASAL SPRAY 16 GM BOTTLE BOTH NARES SCH (10:01)
[2020-04-21] MEDS: PANTOPRAZOLE 40 MG VIAL IV SCH (10:01)
[2020-04-21] MEDS: INSULIN LISPRO PROTAMINE/LISPRO 75/25 100 UNIT/ML SUBCUT SCH ×2 (10:18→16:37)
[2020-04-21] MEDS: AMIODARONE 200 MG TABLET PO SCH (10:19)
[2020-04-21] MEDS: INSULIN LISPRO 100 UNIT/ML SUBCUT SCH ×4 (10:19→21:34)
[2020-04-21] MEDS: DIGOXIN 0.125 MG TABLET PO SCH (12:37)
[2020-04-21] MEDS ORDERED: INSULIN LISPRO PROTAMINE/LISPRO 75/25 100 UNIT/ML SUBCUT SCH ×2 (18:42)
[2020-04-21] MEDS: FINASTERIDE 5 MG TABLET PO SCH (21:34)
[2020-04-21] MEDS: ASPIRIN EC 81 MG TABLET PO SCH (21:34)
[2020-04-22 05:32] LABS: Basophils % 0.5 % (0.0-0.8); Eosinophils # 0.3 10*3/uL (0.0-0.87); Hematocrit 34.1 VOL% (42.0-52.0); Hemoglobin 10.6 GM/DL (14.0-18.0); Immature Granulocytes % 0.5 %; Immature Granulocytes Absolute 0.04 #; Lymphocytes # 1.3 10*3/uL (1.4-4.0); Lymphocytes % 15.7 % (21.2-54.2); Mean Corpuscular HGB Conc 31.1 GM/DL (32-36); Mean Corpuscular Volume 88.3 FL (87-102); Mean Platelet Volume 12.7 FL (9.6-12.0); Monocytes % 9.7 % (1.7-12.7); Neutrophils % 69.6 % (38.7-73.9); Platelet Count 162 T/CUMM (130-400); Red Blood Count 3.86 MC/CUMM (3.8-5.5); Red Cell Distribution Width 18.4 % (9.3-17.3); White Blood Count 8.2 T/CUMM (4-12)
[2020-04-22] MEDS: traMADol 50 MG TABLET PO PRN ×3 (05:35→19:31)
[2020-04-22] MEDS: LEVOTHYROXINE 50 MCG TABLET PO SCH (05:35)
[2020-04-22 05:48] LABS: INR 2.6
[2020-04-22 05:50] LABS: Calcium 7.9 MG/DL (8.5-10.1); Osmolality,Calculated 286.4 MOS/KG (273-304)
[2020-04-22] MEDS: GABAPENTIN 600 MG TABLET PO SCH ×2 (10:04→21:46)
[2020-04-22] MEDS: PANTOPRAZOLE 40 MG VIAL IV SCH (10:04)
[2020-04-22] MEDS: allopurinoL 300 MG TABLET PO SCH (10:05)
[2020-04-22] MEDS: DULoxetine 30 MG CAPSULE PO SCH (10:05)
[2020-04-22] MEDS: POTASSIUM CHLORIDE 20 MEQ TABLET PO SCH ×2 (10:05→21:47)
[2020-04-22] MEDS: DOXAZOSIN 4 MG TABLET PO SCH (10:06)
[2020-04-22] MEDS: carvediloL 25 MG TABLET PO SCH ×2 (10:06→16:10)
[2020-04-22] MEDS: POTASSIUM CHLORIDE RIDER 10 MEQ in PREMIX 1 EACH IV SCH ×4 (10:06→13:56)
[2020-04-22] MEDS: AMIODARONE 200 MG TABLET PO SCH (10:06)
[2020-04-22] MEDS: ISOSORBIDE DINITRATE 20 MG TABLET PO SCH ×3 (10:06→21:46)
[2020-04-22] MEDS: INSULIN LISPRO 100 UNIT/ML SUBCUT SCH ×4 (10:07→21:59)
[2020-04-22] MEDS: FLUTICASONE 50 MCG NASAL SPRAY 16 GM BOTTLE BOTH NARES SCH (10:07)
[2020-04-22] MEDS: LINACLOTIDE 145 MCG CAPSULE PO SCH (10:09)
[2020-04-22] MEDS ORDERED: POTASSIUM CHLORIDE 20 MEQ TABLET PO ONE (12:00)
[2020-04-22] MEDS: DIGOXIN 0.125 MG TABLET PO SCH (12:41)
[2020-04-22] MEDS: ASPIRIN EC 81 MG TABLET PO SCH (21:46)
[2020-04-22] MEDS: FINASTERIDE 5 MG TABLET PO SCH (21:46)
[2020-04-22] MEDS: POTASSIUM CHLORIDE RIDER 10 MEQ in PREMIX 1 EACH IV PRN ×2 (21:53→23:21)
[2020-04-23] MEDS: POTASSIUM CHLORIDE RIDER 10 MEQ in PREMIX 1 EACH IV PRN (00:40)
[2020-04-23 05:49] LABS: Basophils # 0.1 10*3/uL (0.0-0.2); Basophils % 0.9 % (0.0-0.8); Eosinophils # 0.3 10*3/uL (0.0-0.87); Eosinophils % 3.1 % (0.00-10.9); Hematocrit 32.9 VOL% (42.0-52.0); Hemoglobin 10.2 GM/DL (14.0-18.0); Immature Granulocytes % 0.2 %; Immature Granulocytes Absolute 0.02 #; Lymphocytes # 1.1 10*3/uL (1.4-4.0); Mean Corpuscular Volume 88.7 FL (87-102); Mean Platelet Volume 12.9 FL (9.6-12.0); Monocytes % 9.3 % (1.7-12.7); Neutrophils % 73.5 % (38.7-73.9); Platelet Count 156 T/CUMM (130-400); Red Blood Count 3.71 MC/CUMM (3.8-5.5); Red Cell Distribution Width 18.5 % (9.3-17.3); White Blood Count 8.2 T/CUMM (4-12)
[2020-04-23] MEDS: LEVOTHYROXINE 50 MCG TABLET PO SCH (05:53)
[2020-04-23] MEDS: traMADol 50 MG TABLET PO PRN (05:53)
[2020-04-23 05:59] LABS: INR 2.1; PT Patient Result 22.1 SECS (9.8-11.9)
[2020-04-23 06:04] LABS: Calcium 8.5 MG/DL (8.5-10.1); Osmolality,Calculated 280.5 MOS/KG (273-304)
[2020-04-23] MEDS: FLUTICASONE 50 MCG NASAL SPRAY 16 GM BOTTLE BOTH NARES SCH (08:49)
[2020-04-23] MEDS ORDERED: cephALEXin 500 MG CAPSULE PO ONE (09:00)
[2020-04-23] MEDS ORDERED: LIDOCAINE 2% TOP JELLY 20 ML VIAL INTRAURETH ONE (09:24)
[2020-04-23] MEDS ORDERED: NEOMYCIN/POLYMYXIN IRRIG SOLN 1 ML AMP BLADDERIRR ONE (09:42)
[2020-04-23] MEDS: INSULIN LISPRO 100 UNIT/ML SUBCUT SCH ×4 (10:32→20:50)
[2020-04-23] MEDS: LINACLOTIDE 145 MCG CAPSULE PO SCH (12:19)
[2020-04-23] MEDS: ISOSORBIDE DINITRATE 20 MG TABLET PO SCH ×3 (12:57→21:37)
[2020-04-23] MEDS: GABAPENTIN 600 MG TABLET PO SCH ×2 (12:57→21:37)
[2020-04-23] MEDS: DOXAZOSIN 4 MG TABLET PO SCH (12:57)
[2020-04-23] MEDS: DIGOXIN 0.125 MG TABLET PO SCH (12:57)
[2020-04-23] MEDS: DULoxetine 30 MG CAPSULE PO SCH (12:57)
[2020-04-23] MEDS: POTASSIUM CHLORIDE 20 MEQ TABLET PO SCH ×2 (12:57→21:38)
[2020-04-23] MEDS: AMIODARONE 200 MG TABLET PO SCH (12:58)
[2020-04-23] MEDS: carvediloL 25 MG TABLET PO SCH ×2 (12:58→17:39)
[2020-04-23] MEDS: PANTOPRAZOLE 40 MG VIAL IV SCH (12:58)
[2020-04-23] MEDS: allopurinoL 300 MG TABLET PO SCH (12:58)
[2020-04-23] MEDS: FUROSEMIDE 40 MG TABLET PO SCH (17:39)
[2020-04-23] MEDS: WARFARIN 5 MG TABLET PO SCH (17:39)
[2020-04-23] MEDS: FINASTERIDE 5 MG TABLET PO SCH (21:37)
[2020-04-23] MEDS: ASPIRIN EC 81 MG TABLET PO SCH (21:37)
[2020-04-24 05:42] LABS: Basophils % 0.6 % (0.0-0.8); Eosinophils # 0.3 10*3/uL (0.0-0.87); Eosinophils % 4.2 % (0.00-10.9); Hematocrit 33.7 VOL% (42.0-52.0); Hemoglobin 10.7 GM/DL (14.0-18.0); Immature Granulocytes % 0.3 %; Immature Granulocytes Absolute 0.02 #; Lymphocytes # 1.3 10*3/uL (1.4-4.0); Lymphocytes % 20.1 % (21.2-54.2); Mean Corpuscular HGB Conc 31.8 GM/DL (32-36); Mean Corpuscular Volume 85.8 FL (87-102); Mean Platelet Volume 12.3 FL (9.6-12.0); Monocytes % 9.4 % (1.7-12.7); Neutrophils % 65.4 % (38.7-73.9); Platelet Count 169 T/CUMM (130-400); Red Blood Count 3.93 MC/CUMM (3.8-5.5); Red Cell Distribution Width 18.2 % (9.3-17.3); White Blood Count 6.5 T/CUMM (4-12)
[2020-04-24] MEDS: LEVOTHYROXINE 50 MCG TABLET PO SCH (05:44)
[2020-04-24 05:45] LABS: INR 1.7; PT Patient Result 17.7 SECS (9.8-11.9)
[2020-04-24 05:59] LABS: Calcium 8.3 MG/DL (8.5-10.1); Osmolality,Calculated 278.7 MOS/KG (273-304)
[2020-04-24] MEDS: POTASSIUM CHLORIDE RIDER 10 MEQ in PREMIX 1 EACH IV PRN ×4 (07:06→21:47)
[2020-04-24] MEDS: INSULIN LISPRO 100 UNIT/ML SUBCUT SCH ×4 (08:23→21:37)
[2020-04-24] MEDS: metOLazone 5 MG TABLET PO SCH (09:57)
[2020-04-24] MEDS: FUROSEMIDE 40 MG TABLET PO SCH ×2 (09:57→16:02)
[2020-04-24] MEDS: AMIODARONE 200 MG TABLET PO SCH (09:57)
[2020-04-24] MEDS: POTASSIUM CHLORIDE 20 MEQ TABLET PO SCH ×2 (09:57→21:48)
[2020-04-24] MEDS: ISOSORBIDE DINITRATE 20 MG TABLET PO SCH ×3 (09:57→21:48)
[2020-04-24] MEDS: DULoxetine 30 MG CAPSULE PO SCH (09:58)
[2020-04-24] MEDS: LINACLOTIDE 145 MCG CAPSULE PO SCH (09:58)
[2020-04-24] MEDS: allopurinoL 300 MG TABLET PO SCH (09:58)
[2020-04-24] MEDS: carvediloL 25 MG TABLET PO SCH ×2 (09:58→17:32)
[2020-04-24] MEDS: GABAPENTIN 600 MG TABLET PO SCH ×2 (09:58→21:48)
[2020-04-24] MEDS: PANTOPRAZOLE 40 MG VIAL IV SCH (09:58)
[2020-04-24] MEDS: DOXAZOSIN 4 MG TABLET PO SCH (09:58)
[2020-04-24] MEDS: FLUTICASONE 50 MCG NASAL SPRAY 16 GM BOTTLE BOTH NARES SCH (09:59)
[2020-04-24] MEDS: traMADol 50 MG TABLET PO PRN (10:41)
[2020-04-24] MEDS: DIGOXIN 0.125 MG TABLET PO SCH (13:31)
[2020-04-24] MEDS: WARFARIN 5 MG TABLET PO SCH (17:32)
[2020-04-24] MEDS: FINASTERIDE 5 MG TABLET PO SCH (21:48)
[2020-04-24] MEDS: ASPIRIN EC 81 MG TABLET PO SCH (21:48)
[2020-04-25] MEDS: LEVOTHYROXINE 50 MCG TABLET PO SCH (05:36)
[2020-04-25 05:43] LABS: INR 1.4; PT Patient Result 15.2 SECS (9.8-11.9)
[2020-04-25] MEDS: POTASSIUM CHLORIDE RIDER 10 MEQ in PREMIX 1 EACH IV PRN ×2 (06:09→09:09)
[2020-04-25 07:54] LABS: Basophils # 0.1 10*3/uL (0.0-0.2); Basophils % 0.6 % (0.0-0.8); Eosinophils # 0.3 10*3/uL (0.0-0.87); Eosinophils % 3.7 % (0.00-10.9); Hematocrit 36.3 VOL% (42.0-52.0); Hemoglobin 11.6 GM/DL (14.0-18.0); Immature Granulocytes % 0.3 %; Immature Granulocytes Absolute 0.02 #; Lymphocytes # 1.5 10*3/uL (1.4-4.0); Lymphocytes % 19.5 % (21.2-54.2); Mean Corpuscular Volume 87.1 FL (87-102); Mean Platelet Volume 12.8 FL (9.6-12.0); Monocytes % 9.2 % (1.7-12.7); Neutrophils % 66.7 % (38.7-73.9); Platelet Count 197 T/CUMM (130-400); Red Blood Count 4.17 MC/CUMM (3.8-5.5); Red Cell Distribution Width 18.6 % (9.3-17.3); White Blood Count 7.7 T/CUMM (4-12)
[2020-04-25 08:02] LABS: Osmolality,Calculated 280.7 MOS/KG (273-304)
[2020-04-25 08:18] VITALS: BP 141/75
[2020-04-25] MEDS: PANTOPRAZOLE 40 MG VIAL IV SCH (08:50)
[2020-04-25] MEDS: INSULIN LISPRO 100 UNIT/ML SUBCUT SCH (08:50)
[2020-04-25] MEDS: metOLazone 5 MG TABLET PO SCH (08:51)
[2020-04-25] MEDS: carvediloL 25 MG TABLET PO SCH (08:51)
[2020-04-25] MEDS: GABAPENTIN 600 MG TABLET PO SCH (08:51)
[2020-04-25] MEDS: DULoxetine 30 MG CAPSULE PO SCH (08:51)
[2020-04-25] MEDS: FLUTICASONE 50 MCG NASAL SPRAY 16 GM BOTTLE BOTH NARES SCH (08:51)
[2020-04-25] MEDS: ISOSORBIDE DINITRATE 20 MG TABLET PO SCH (08:51)
[2020-04-25] MEDS: allopurinoL 300 MG TABLET PO SCH (08:51)
[2020-04-25] MEDS: AMIODARONE 200 MG TABLET PO SCH (08:51)
[2020-04-25] MEDS: POTASSIUM CHLORIDE 20 MEQ TABLET PO SCH (08:51)
[2020-04-25] MEDS: FUROSEMIDE 40 MG TABLET PO SCH (08:51)
[2020-04-25] MEDS: LINACLOTIDE 145 MCG CAPSULE PO SCH (08:52)
[2020-04-25] MEDS: DOXAZOSIN 4 MG TABLET PO SCH (08:52)
== END 2020-04-25 10:10 | disposition left against medical advice (07) | DRG 683 ==
LOC: N.EDINP 18:25 → N.ED 18:25 → N.EDINP 22:58 → N.3E 23:06
PROVIDERS: ADMIT Internal Medicine; ATTEND Internal Medicine

== ENCOUNTER 2021-01-10 20:22 | Inpatient (IN) ==
[2021-01-10] MEDS ORDERED: GLUCAGON 1 MG VIAL IM PRN (22:29)
[2021-01-10] MEDS ORDERED: ONDANSETRON 4 MG/2 ML VIAL IV PRN (22:29)
[2021-01-10] MEDS ORDERED: DEXTROSE 50% 25 GM/50 ML VIAL IV PRN (22:29)
[2021-01-10] MEDS ORDERED: DOCUSATE SODIUM 100 MG CAPSULE PO PRN (22:29)
[2021-01-10] MEDS ORDERED: SODIUM CHLORIDE 0.9% 1,000 ML IV SCH (22:30)
[2021-01-10 22:55] LABS: Basophils # 0.1 10*3/uL (0.0-0.2); Basophils % 0.7 % (0.0-0.8); Eosinophils # 0.2 10*3/uL (0.0-0.87); Eosinophils % 2.5 % (0.00-10.9); Hematocrit 33.8 VOL% (42.0-52.0); Hemoglobin 10.5 GM/DL (14.0-18.0); Immature Granulocytes % 0.3 %; Immature Granulocytes Absolute 0.02 #; Lymphocytes # 1.2 10*3/uL (1.4-4.0); Lymphocytes % 16.8 % (21.2-54.2); Mean Corpuscular HGB Conc 31.1 GM/DL (32-36); Mean Corpuscular Volume 89.4 FL (87-102); Mean Platelet Volume 11.7 FL (9.6-12.0); Monocytes % 9.1 % (1.7-12.7); Neutrophils % 70.6 % (38.7-73.9); Platelet Count 194 T/CUMM (130-400); Red Blood Count 3.78 MC/CUMM (3.8-5.5); Red Cell Distribution Width 15.8 % (9.3-17.3); White Blood Count 7.1 T/CUMM (4-12)
[2021-01-10] MEDS: cefTRIAXone 2,000 MG in SODIUM CHLORIDE 0.9% 100 ML IV SCH (23:08)
[2021-01-10 23:44] LABS: Albumin 3.5 G/DL (3.4-5.0); Bilirubin,Total 0.5 MG/DL (0.2-1.0); Calcium 8.5 MG/DL (8.5-10.1); Potassium 3.4 MMOL/L (3.5-5.1); Total Protein 7.7 G/DL (6.4-8.2)
[2021-01-11] MEDS: ALBUTEROL 2.5 MG/3 ML NEB RESP TX SCH ×4 (00:38→20:36)
[2021-01-11 02:10] LABS: Basophils % 0.6 % (0.0-0.8); Eosinophils # 0.2 10*3/uL (0.0-0.87); Eosinophils % 2.7 % (0.00-10.9); Hematocrit 33.1 VOL% (42.0-52.0); Hemoglobin 10.3 GM/DL (14.0-18.0); Immature Granulocytes % 0.5 %; Immature Granulocytes Absolute 0.03 #; Lymphocytes # 1.1 10*3/uL (1.4-4.0); Lymphocytes % 17.8 % (21.2-54.2); Mean Corpuscular HGB Conc 31.1 GM/DL (32-36); Mean Corpuscular Volume 90.2 FL (87-102); Monocytes % 9.4 % (1.7-12.7); Platelet Count 172 T/CUMM (130-400); Red Blood Count 3.67 MC/CUMM (3.8-5.5); Red Cell Distribution Width 15.6 % (9.3-17.3); White Blood Count 6.4 T/CUMM (4-12)
[2021-01-11 02:28] LABS: Calcium 8.5 MG/DL (8.5-10.1); Potassium 3.1 MMOL/L (3.5-5.1); Thyroid Stimulating Hormone 4.37 uIU/ml (0.358-3.74)
[2021-01-11 07:20] LABS: Bilirubin,Urine Negative (Negative); Blood, Urine Small mg/dL (Negative); Glucose,Urine (UA) Negative (Negative); Hyaline Casts,Urine 1 /LPF (0-3); Ketones,Urine Negative (Negative); Mucus,Urine Occasional /LPF (Occasional); Nitrite,Urine Negative (Negative); Protein,Urine Negative; RBC,Urine 2 /HPF (0-4); Squamous Epithelial Cell,Urine Occasional /HPF (0-10); Urine Appearance CLEAR (Clear); Urine Color Yellow (Yellow); Urine Urobilinogen < 2.0 EU/DL (0.2-1.0)
[2021-01-11] MEDS: POTASSIUM CHLORIDE 20 MEQ TABLET PO SCH ×3 (08:23→20:54)
[2021-01-11] MEDS: DOXAZOSIN 4 MG TABLET PO SCH (08:23)
[2021-01-11] MEDS: FINASTERIDE 5 MG TABLET PO SCH (08:23)
[2021-01-11] MEDS: ASPIRIN EC 81 MG TABLET PO SCH (08:23)
[2021-01-11] MEDS: ISOSORBIDE DINITRATE 20 MG TABLET PO SCH ×3 (08:23→20:54)
[2021-01-11] MEDS: LEVOTHYROXINE 50 MCG TABLET PO SCH (08:23)
[2021-01-11] MEDS: carvediloL 25 MG TABLET PO SCH ×2 (08:24→20:54)
[2021-01-11] MEDS: PANTOPRAZOLE 40 MG TABLET PO SCH (08:24)
[2021-01-11] MEDS: AMIODARONE 200 MG TABLET PO SCH (08:24)
[2021-01-11] MEDS: GABAPENTIN 600 MG TABLET PO SCH ×3 (08:24→20:54)
[2021-01-11] MEDS: metOLazone 5 MG TABLET PO SCH (08:24)
[2021-01-11] MEDS ORDERED: FUROSEMIDE 80 MG TABLET PO SCH (09:00)
[2021-01-11] MEDS ORDERED: ENOXAPARIN 30 MG/0.3 ML SYRINGE SUBCUT SCH (09:00)
[2021-01-11] MEDS: INSULIN LISPRO 100 UNIT/ML SUBCUT SCH ×2 (16:53→21:03)
[2021-01-11] MEDS ORDERED: DEXTROSE 50% 25 GM/50 ML VIAL IV PRN (19:37)
[2021-01-11] MEDS ORDERED: GLUCAGON 1 MG VIAL IM PRN (19:37)
[2021-01-11] MEDS: cefTRIAXone 2,000 MG in SODIUM CHLORIDE 0.9% 100 ML IV SCH (21:04)
[2021-01-12] MEDS: ALBUTEROL 2.5 MG/3 ML NEB RESP TX SCH ×4 (00:33→19:23)
[2021-01-12 05:37] LABS: Basophils % 0.5 % (0.0-0.8); Eosinophils # 0.1 10*3/uL (0.0-0.87); Eosinophils % 1.4 % (0.00-10.9); Hemoglobin 10.3 GM/DL (14.0-18.0); Immature Granulocytes % 0.5 %; Immature Granulocytes Absolute 0.03 #; Lymphocytes # 1.1 10*3/uL (1.4-4.0); Lymphocytes % 16.4 % (21.2-54.2); Mean Corpuscular HGB Conc 31.2 GM/DL (32-36); Mean Corpuscular Volume 89.9 FL (87-102); Mean Platelet Volume 12.9 FL (9.6-12.0); Monocytes % 9.2 % (1.7-12.7); Platelet Count 184 T/CUMM (130-400); Red Blood Count 3.67 MC/CUMM (3.8-5.5); Red Cell Distribution Width 15.7 % (9.3-17.3); White Blood Count 6.5 T/CUMM (4-12)
[2021-01-12 06:02] LABS: Calcium 8.5 MG/DL (8.5-10.1); Osmolality,Calculated 306.1 MOS/KG (273-304)
[2021-01-12] MEDS: INSULIN LISPRO 100 UNIT/ML SUBCUT SCH ×7 (09:16→20:25)
[2021-01-12] MEDS: INSULIN GLARGINE 100 UNIT/ML SUBCUT SCH (09:17)
[2021-01-12] MEDS: ISOSORBIDE DINITRATE 20 MG TABLET PO SCH ×3 (09:18→20:43)
[2021-01-12] MEDS: ASPIRIN EC 81 MG TABLET PO SCH (09:18)
[2021-01-12] MEDS: DOXAZOSIN 4 MG TABLET PO SCH (09:18)
[2021-01-12] MEDS: AMIODARONE 200 MG TABLET PO SCH (09:18)
[2021-01-12] MEDS: POTASSIUM CHLORIDE 20 MEQ TABLET PO SCH ×3 (09:19→20:44)
[2021-01-12] MEDS: carvediloL 25 MG TABLET PO SCH ×2 (09:19→20:43)
[2021-01-12] MEDS: FINASTERIDE 5 MG TABLET PO SCH (09:19)
[2021-01-12] MEDS: PANTOPRAZOLE 40 MG TABLET PO SCH (09:19)
[2021-01-12] MEDS: LEVOTHYROXINE 50 MCG TABLET PO SCH (09:20)
[2021-01-12] MEDS: GABAPENTIN 600 MG TABLET PO SCH ×3 (09:20→20:44)
[2021-01-12] MEDS: APIXABAN 2.5 MG TABLET PO SCH (09:20)
[2021-01-12] MEDS: LACTULOSE 20 GM/30 ML UDCUP PO SCH ×3 (14:10→20:43)
[2021-01-12] MEDS: LINACLOTIDE 145 MCG CAPSULE PO SCH (14:11)
[2021-01-12] MEDS: FUROSEMIDE 40 MG TABLET PO SCH ×2 (14:12→17:09)
[2021-01-12] MEDS: POLYETHYLENE GLYCOL POWDER 17 GM PACK PO SCH (14:13)
[2021-01-12] MEDS: cefTRIAXone 2,000 MG in SODIUM CHLORIDE 0.9% 100 ML IV SCH (20:44)
[2021-01-13] MEDS: ALBUTEROL 2.5 MG/3 ML NEB RESP TX SCH ×3 (00:03→13:15)
[2021-01-13] MEDS: LACTULOSE 20 GM/30 ML UDCUP PO SCH ×4 (00:11→13:10)
[2021-01-13 05:30] LABS: Basophils % 0.5 % (0.0-0.8); Eosinophils # 0.1 10*3/uL (0.0-0.87); Eosinophils % 1.4 % (0.00-10.9); Hematocrit 33.5 VOL% (42.0-52.0); Hemoglobin 10.8 GM/DL (14.0-18.0); Immature Granulocytes % 0.5 %; Immature Granulocytes Absolute 0.04 #; Mean Corpuscular HGB Conc 32.2 GM/DL (32-36); Mean Corpuscular Volume 88.9 FL (87-102); Monocytes % 8.3 % (1.7-12.7); Neutrophils % 76.3 % (38.7-73.9); Platelet Count 164 T/CUMM (130-400); Red Blood Count 3.77 MC/CUMM (3.8-5.5); Red Cell Distribution Width 15.8 % (9.3-17.3); White Blood Count 7.6 T/CUMM (4-12)
[2021-01-13 05:54] LABS: Hypochromasia Slight; Microcytosis Slight; Platelet Estimate Adequate
[2021-01-13 06:03] LABS: Calcium 8.2 MG/DL (8.5-10.1); Osmolality,Calculated 312.7 MOS/KG (273-304); Potassium 4.4 MMOL/L (3.5-5.1)
[2021-01-13] MEDS: INSULIN LISPRO 100 UNIT/ML SUBCUT SCH ×4 (08:09→11:49)
[2021-01-13] MEDS: INSULIN GLARGINE 100 UNIT/ML SUBCUT SCH (08:11)
[2021-01-13] MEDS: POLYETHYLENE GLYCOL POWDER 17 GM PACK PO SCH (08:14)
[2021-01-13] MEDS: APIXABAN 2.5 MG TABLET PO SCH (08:15)
[2021-01-13] MEDS: metOLazone 5 MG TABLET PO SCH (08:15)
[2021-01-13] MEDS: POTASSIUM CHLORIDE 20 MEQ TABLET PO SCH (08:16)
[2021-01-13] MEDS: carvediloL 25 MG TABLET PO SCH (08:16)
[2021-01-13] MEDS: GABAPENTIN 600 MG TABLET PO SCH (08:17)
[2021-01-13] MEDS: ISOSORBIDE DINITRATE 20 MG TABLET PO SCH (08:17)
[2021-01-13] MEDS: ASPIRIN EC 81 MG TABLET PO SCH (08:18)
[2021-01-13] MEDS: AMIODARONE 200 MG TABLET PO SCH (08:18)
[2021-01-13] MEDS: DOXAZOSIN 4 MG TABLET PO SCH (08:19)
[2021-01-13] MEDS: LEVOTHYROXINE 50 MCG TABLET PO SCH (08:20)
[2021-01-13] MEDS: FUROSEMIDE 40 MG TABLET PO SCH (08:20)
[2021-01-13] MEDS: LINACLOTIDE 145 MCG CAPSULE PO SCH (08:22)
[2021-01-13] MEDS: PANTOPRAZOLE 40 MG TABLET PO SCH (08:22)
[2021-01-13] MEDS: FINASTERIDE 5 MG TABLET PO SCH (08:23)
[2021-01-13] MEDS ORDERED: DULoxetine 30 MG CAPSULE PO SCH (09:00)
[2021-01-13] MEDS ORDERED: PYRIDOXINE 50 MG TABLET PO SCH (09:00)
[2021-01-13 10:08] VITALS: BP 121/78
[2021-01-13] MEDS ORDERED: AMOXICILLIN/CLAV 500 MG TABLET PO SCH (21:00)
== END 2021-01-13 15:35 | disposition home or self-care (01) | DRG 683 ==
LOC: N.5E → SUATTDRO 21:34
PROVIDERS: ADMIT Internal Medicine; ATTEND Internal Medicine